=== PATIENT | female | born 1970 | race Caucasian/White ===

== ENCOUNTER 2017-02-10 14:42 | Observation (INO) | payer BC, MEDICAID ==
[2017-02-10] MEDS ORDERED: Aspirin 325 mg EC Tablets PO STA (14:53)
--- NOTE | 2017-02-10 14:57 | ED PDOC ---
Arrival/HPI - General Chief Complaint: Chest Pain Time Seen by Provider: 02/10/17 14:46 Historian: Patient - History of Present Illness Time/Duration: Other (2 weeks) Symptom Onset: Gradual Symptom Course: Unchanged Quality: Aching, Pressure Severity Level: Mild Activities at Onset: Rest Associated Symptoms (Text): 02/10/17 14:55 Patient complains of approximately 2 week history of intermittent chest pain described as an aching and pressure with radiation into her back along with shortness of breath and nausea. She especially has dyspnea on exertion. No dizziness. No diaphoresis. He is a hypertensive smoker. Positive family history. Past Medical History - Infectious Disease Hx of Infectious Diseases: None - Cardiac Hx Cardiac Disorders: Yes Hx Hypertension: Yes - Pulmonary Hx Respiratory Disorders: Yes Hx Asthma: Yes (exercise induced) - Neurological Hx Neurological Disorder: No - HEENT Hx HEENT Disorder: No - Renal Hx Renal Disorder: No - Endocrine/Metabolic Hx Endocrine Disorders: No - Hematological/Oncological Hx Blood Disorders: No - Integumentary Hx Dermatological Disorder: No - Musculoskeletal/Rheumatological Hx Musculoskeletal Disorders: Yes Other/Comment: joint disease, as per pt - Gastrointestinal Hx Gastrointestinal Disorders: No - Genitourinary/Gynecological Hx Genitourinary Disorders: No - Psychiatric Hx Psychophysiologic Disorder: No Hx Substance Use: No - Surgical History Hx Hysterectomy: Yes Hx Tonsillectomy: Yes Other/Comment: uterine prolapse repair - Anesthesia Hx Anesthesia: Yes Hx Anesthesia Reactions: No Family/Social History - Physician Review Nursing Documentation Reviewed: Yes Family/Social History: Unknown Family HX Smoking Status: Heavy Smoker > 10 Cigarettes Daily Hx Alcohol Use: Yes Frequency of alcohol use: Socially Hx Substance Use: No Allergies/Home Meds Allergies/Adverse Reactions: Allergies No Known Allergies Allergy (Unverified 02/10/17 14:53) Home Medications: Home Meds Medication Instructions Recorded Confirmed Estradiol [Estradiol] 0.5 mg PO DAILY 02/10/17 02/10/17 Gabapentin [Neurontin] 100 mg PO BID 02/10/17 02/10/17 Hydrochlorothiazide [Microzide] 12.5 mg PO DAILY 02/10/17 02/10/17 Sertraline [Zoloft] 12.5 mg PO DAILY 02/10/17 02/10/17 Sucralfate [Carafate Tab] 1 gm PO DAILY 02/10/17 02/10/17 traZODone [Desyrel] 25 mg PO DAILY 02/10/17 02/10/17 Review of Systems - Physician Review All systems were reviewed & negative as marked: Yes - Review of Systems Constitutional: Fatigue. absent: Fevers Respiratory: SOB. absent: Cough, Wheezing Cardiovascular: Chest Pain. absent: Palpitations, Syncope Gastrointestinal: Nausea. absent: Abdominal Pain, Constipation, Diarrhea, Vomiting Genitourinary Female: absent: Dysuria, Frequency, Hematuria Neurological: absent: Headache, Dizziness, Focal Weakness Physical Exam Vital Signs Temp Pulse Resp BP Pulse Ox 02/10/17 15:45 123/86 02/10/17 15:01 97.6 F 68 19 165/101 H 100 Temperature: Afebrile Blood Pressure: Hypertensive Pulse: Regular Respiratory Rate: Normal Appearance: Positive for: Well-Appearing, Non-Toxic, Comfortable Pain Distress: None Mental Status: Positive for: Alert and Oriented X 3 - Systems Exam Head: Present: Atraumatic, Normocephalic Pupils: Present: PERRL Extroacular Muscles: Present: EOMI Conjunctiva: Present: Normal Mouth: Present: Moist Mucous Membranes Pharnyx: No: ERYTHEMA, EXUDATE, TONSILS ENLARGED Neck: Present: Normal Range of Motion. No: MIDLINE TENDERNESS, Paraspinal Tenderness Respiratory/Chest: Present: Clear to Auscultation, Good Air Exchange, Decreased Breath Sounds. No: Respiratory Distress, Accessory Muscle Use Cardiovascular: Present: Regular Rate and Rhythm, Normal S1, S2. No: Murmurs Abdomen: Present: Normal Bowel Sounds. No: Tenderness, Distention, Peritoneal Signs, Rebound, Guarding Back: Present: Normal Inspection Upper Extremity: Present: Normal Inspection. No: Cyanosis, Edema Lower Extremity: Present: Normal Inspection. No: Edema Neurological: Present: GCS=15, CN II-XII Intact, Speech Normal, Motor Func Grossly Intact Skin: Present: Warm, Dry, Normal Color. No: Rashes Psychiatric: Present: Alert, Oriented x 3, Normal Insight, Normal Concentration Medical Decision Making ED Course and Treatment: 02/10/17 14:56 EKG shows normal sinus rhythm rate approximately [address] or T-wave changes 02/10/17 16:13 Pain and blood pressure have improved post nitroglycerin - Lab Interpretations Lab Results: 02/10/17 14:55 02/10/17 14:55 Lab Results 02/10/17 14:55: Sodium 138, Potassium 3.6, Chloride 100, Carbon Dioxide 27, Anion Gap 15, BUN 11, Creatinine 0.8, Est GFR ( Amer) > 60, Est GFR (Non- Af Amer) > 60, Random Glucose 100, Calcium 9.9, Total Bilirubin 0.5, AST 24, ALT 40, Alkaline Phosphatase 34 L, Lactate Dehydrogenase 465, Total Creatine Kinase 74, Troponin I < 0.01, NT-Pro-B Natriuret Pep 53.6, Total Protein 8.3, Albumin 4.3, Globulin 3.9, Albumin/Globulin Ratio 1.1 02/10/17 14:55: PT 10.3, INR 0.95, APTT 27.5, D-Dimer, Quantitative 0.20 02/10/17 14:55: WBC 8.5, RBC 4.85, Hgb 15.1, Hct 43.4, MCV 89.5, MCH 31.1, MCHC 34.8, RDW 13.6, Plt Count 309, MPV 9.4, Gran % 62.1, Lymph % (Auto) 30.4, Robeson % (Auto) 5.3, Eos % (Auto) 1.7, Baso % (Auto) 0.5, Gran # 5.27, Lymph # 2.6, Robeson # 0.5, Eos # 0.1, Baso # 0.04 - RAD Interpretation Radiology Orders: 02/10/17 14:53 CHEST PORTABLE [RAD] Stat Chest 1 view shows no infiltrate effusion or cardiomegaly Service Station Manager: ED Physician - Medication Orders Current Medication Orders: Discontinued Medications Acetaminophen (Tylenol 325mg Tab) Confirm Administered Dose 650 mg .ROUTE .STK- MED ONE Stop: 02/10/17 15:46 Last Admin: 02/10/17 15:48 Dose: Acetaminophen (Tylenol 325mg Tab) 650 mg PO STAT STA Stop: 02/10/17 15:48 Last Admin: 02/10/17 15:48 Dose: 650 mg Aspirin (Ecotrin) 325 mg PO STAT STA Stop: 02/10/17 14:54 Last Admin: 02/10/17 15:19 Dose: 325 mg Nitroglycerin (Nitrostat Sl Tab) 0.4 mg SL STAT STA Stop: 02/10/17 14:54 Last Admin: 02/10/17 15:19 Dose: 0.4 mg Disposition/Present on Arrival - Present on Arrival Any Indicators Present on Arrival: No History of DVT/PE: No History of Uncontrolled Diabetes: No Urinary Catheter: No History of Decub. Ulcer: No History Surgical Site Infection Following: None - Disposition Have Diagnosis and Disposition been Completed?: Yes Diagnosis: Chest pain, Hypertension Disposition: HOSPITALIZED Disposition Time: 16:13 Patient Plan: Observation, Telemetry Condition: GOOD Discharge Instructions (ExitCare): Chest Pain (ED)
[2017-02-10 15:15] LABS: ADD MANUAL DIFF? NO
[2017-02-10 15:19] LABS: BASO # 0.04 K/mm3 (0.0-2.0); BASO % 0.5 % (0.0-3.0); EOS # 0.1 (0.0-0.7); EOS % 1.7 % (1.5-5.0); GRAN # 5.27 (1.4-6.5); GRAN % 62.1 % (50.0-68.0); HEMATOCRIT 43.4 % (36.0-48.0); LYMPH # 2.6 (1.2-3.4); LYMPH % 30.4 % (22.0-35.0); MEAN CELL VOLUME 89.5 fL (80.0-105.0); MEAN CORPUSCULAR HEMOGLOBIN 31.1 pg (25.0-35.0); MEAN CORPUSCULAR HGB CONC 34.8 g/dl (31.0-37.0); MEAN PLATELET VOLUME 9.4 fl (7.0-11.0); MONO # 0.5 (0.1-0.6); MONO % 5.3 % (1.0-6.0); PLATELET COUNT 309 10^3/uL (120.0-450.0); RED CELL DISTRIBUTION WIDTH 13.6 % (11.5-14.5); WHITE BLOOD COUNT 8.5 10^3/ul (4.5-11.0)
[2017-02-10 15:28] LABS: ALB/GLOB RATIO 1.1 (1.1-1.8); ALKALINE PHOSPHATASE 34 U/L (38-133); ALT/SGPT 40 U/L (7-56); AST/SGOT 24 U/L (15-39); BILIRUBIN,TOTAL 0.5 mg/dL (0.2-1.3); BLOOD UREA NITROGEN 11 mg/dL (7-21); CALCIUM 9.9 mg/dL (8.4-10.5); CARBON DIOXIDE 27 mmol/L (21-33); CHLORIDE 100 mmol/L (98-107); GFR AFRICAN-AMERICAN > 60; GLUCOSE,RANDOM 100 mg/dL (70-110); POTASSIUM 3.6 mmol/L (3.6-5.0); SODIUM 138 mmol/L (132-148); TOTAL PROTEIN 8.3 g/dL (5.8-8.3)
--- NOTE | 2017-02-10 15:38 | RAD ---
HISTORY: cp COMPARISON: No prior. FINDINGS: LUNGS: No active pulmonary disease. PLEURA: No significant pleural effusion identified, no pneumothorax apparent. CARDIOVASCULAR: Normal. OSSEOUS STRUCTURES: No significant abnormalities. VISUALIZED UPPER ABDOMEN: Normal. OTHER FINDINGS: None. IMPRESSION: No active disease.
[2017-02-10 15:41] LABS: TROPONIN I < 0.01 ng/mL
[2017-02-10 15:45] LABS: D DIMER 0.2 mg/L FEU (0-0.50); INR 0.95 (0.93-1.08); PARTIAL THROMBOPLASTIN TIME 27.5 Seconds (23.7-30.8)
--- NOTE | 2017-02-10 19:35 | HP ---
HISTORY OF PRESENT ILLNESS: I was called down to the Emergency Room to evaluate the patient. She is having chest pain relieved by nitroglycerin. A 47 -year-old white female with a 2-week history of intermittent chest pain, aching , pressure radiating to her back, along with shortness of breath and nausea. She has dyspnea on exertion. She is hypertensive and she is a smoker. There is a family history of heart disease. PAST MEDICAL HISTORY: She has asthma, exercise induced. She has arthritis. PAST SURGICAL HISTORY: Hysterectomy, tonsillectomy, uterine prolapse repair. FAMILY HISTORY: Hypertension in the family. SOCIAL HISTORY: She is a smoker. She uses alcohol socially. No substance abuse. ALLERGIES: No known drug allergies. MEDICATIONS: She takes estradiol, Neurontin, Microzide, Zoloft, Carafate, and Desyrel. REVIEW OF SYSTEMS: No acute vision changes or hearing changes. No sore throat. No neck pain. There is shortness of breath. There is chest pain. There is pressure and tightness. No palpitations. No abdominal pain, constipation, diarrhea or vomiting, but she has some nauseousness with the pain. No problems urinating. No headaches, dizziness or focal weakness. Skin is intact. PHYSICAL EXAMINATION: VITAL SIGNS: She has a 97.6 temp, 68 pulse, 19 respiratory rate, 165/101 blood pressure, 100% O2 sat. HEENT: Head is atraumatic, normocephalic. Extraocular muscles are intact. Pupils equal, react to light and accommodation. Throat is moist. NECK: Supple. Thyroid midline. No palpable lymphadenopathy appreciated. HEART: Regular rate. Normal S1, S2. LUNGS: Decreased breath sounds but clear to auscultation. No wheezes or rhonchi appreciated. ABDOMEN: Soft, nontender, positive bowel sounds. Morbidly obese. No guarding , no rebound. EXTREMITIES: No edema. GCS is 15. NEUROLOGIC: Cranial nerves II-XII grossly intact. Speech is normal. Motor function grossly intact. Alert and oriented x 3. SKIN: Warm and dry. NEUROLOGIC: EKG was normal sinus rhythm at [address]-T wave changes. Chest x- ray showed no acute disease. LABORATORY DATA: She has a 138 sodium, potassium 3.6, BUN 11, creatinine 0.8, GFR is greater than 60, sugar is 100, calcium 9.9, total bili is 0.5, AST is 24 , ALT is 40, alkaline phosphatase 34, lactate dehydrogenase 465. First troponin is less than 0.01. BNP is 53.6, total protein is 8.3. INR is 0.95. D -dimer was 0.2. White count is 8.5, hemoglobin 15.1, hematocrit 43.4, platelets of 309. ASSESSMENT AND PLAN: She will have 2 more troponins in the next q. 8 hours. She will be put back on her medication. I will put her on has nitroglycerin sublingual p.r.n. just in case. She had an aspirin. She will have a consult with Dr. Parson, the secondary school teacher. She will be put on observation status due to her family history of bad heart disease, her having chest pain and pressure relieved by nitroglycerin and dyspnea on exertion. Hopefully, she will do well. The patient is in observation for chest pain. Elkin Montalvo DO cc: [id number] TT: 02/10/2017 19:34:28 marylin RAMIREZ
[2017-02-10 22:44] VITALS: BMI 38.4
[2017-02-11 06:25] VITALS: TEMP 97.7
[2017-02-11 07:23] LABS: HEMATOCRIT 42.2 % (36.0-48.0); MEAN CORPUSCULAR HEMOGLOBIN 30.3 pg (25.0-35.0); MEAN CORPUSCULAR HGB CONC 33.6 g/dl (31.0-37.0); MEAN PLATELET VOLUME 9.7 fl (7.0-11.0); RED CELL DISTRIBUTION WIDTH 13.9 % (11.5-14.5); WHITE BLOOD COUNT 5.9 10^3/ul (4.5-11.0)
[2017-02-11 07:38] LABS: ALB/GLOB RATIO 1.1 (1.1-1.8); ALKALINE PHOSPHATASE 31 U/L (38-133); ALT/SGPT 34 U/L (7-56); AST/SGOT 24 U/L (15-39); BILIRUBIN,TOTAL 0.5 mg/dL (0.2-1.3); BLOOD UREA NITROGEN 19 mg/dL (7-21); CALCIUM 9.6 mg/dL (8.4-10.5); CARBON DIOXIDE 27 mmol/L (21-33); CHLORIDE 103 mmol/L (98-107); GFR AFRICAN-AMERICAN > 60; GLUCOSE,RANDOM 116 mg/dL (70-110); POTASSIUM 3.9 mmol/L (3.6-5.0); SODIUM 139 mmol/L (132-148); TOTAL PROTEIN 7.3 g/dL (5.8-8.3)
[2017-02-11 07:56] LABS: TROPONIN I < 0.01 ng/mL
[2017-02-11] MEDS ORDERED: ESTRADIOL 0.5 MG PO SCH (10:00)
[2017-02-11 10:29] VITALS: BP 125/82; PULSE 60; RESP 18; O2SAT 97
--- NOTE | 2017-02-11 12:19 | DS ---
I saw her resting comfortably in bed this morning. She slept well. She is in good spirits. No ches t pain. She is on Ambien, Carafate, Desyrel, Ecotrin, estradiol, Microzide, Neurontin, Nitrostat, ju st in case, Tylenol and Zoloft. Those are the medicines she is going to go home on minus the Nitrost at. PHYSICAL EXAMINATION: VITAL SIGNS: 97.7 temp, 62 pulse, 112/58 blood pressure, 19 respiratory rate, 96% O2 sat on room air . HEENT: Head is atraumatic, normocephalic. Throat is moist. NECK: Supple. HEART: Regular rate. LUNGS: Decreased breath sounds but clear to auscultation. ABDOMEN: Soft, obese, nontender, positive bowel sounds. EXTREMITIES: No edema. LABORATORY DATA: She had a 139 sodium, potassium 3.9, BUN 19, creatinine 0.8, GFR is greater than 60 , sugar is 116, calcium 9.6, total bili is 0.5, AST is 24, ALT is 34, alk phosphatase 31. All 3 trop onins are less than 0.01 with a total protein 7.3. Coagulation is 0.95. D-dimer was 0.2. White coun t 5.9, 14.2 hemoglobin, 42.2 hematocrit with 295 platelets. ASSESSMENT AND PLAN: I am waiting for Dr. Parson, the [employer], to give his opinion. I am hoping we can discharge her this morning. She wants to go home. Maybe we could do an outpatient stress lashon t depending on what cardio says. I put the discharge order in. She will be followed up in the [facility] in about a week. She will continue with the same medications. I told her at this time it is not he r heart, the tests were good. She will also have to quit smoking, lose some weight, increase her wal mark. The patient came in for chest pain and also shortness of breath. She was an observation. Elkin Montalvo DO cc: [id number] TT: 02/11/2017 12:18:14 rn
--- NOTE | 2017-02-11 13:07 | CARD ---
APPROVED REPORT EKG Measurement Heart [id number] <Conclusion> Normal sinus rhythm Normal ECG
--- NOTE | 2017-02-11 13:52 | CON ---
DATE: 02/11/2017 I was called to see the patient on consult for chest pain; however, she was discharged before I could see her. In reviewing her chart, her EKG was normal. Troponins were negative. I have called cardiology department to call the patient back up to arrange for an outpatient stress t est for cardiac workup. Jose Parson MD cc: [id number] TT: 02/11/2017 13:51:42 Confirmation # [id number] Dictation # [id number] rn
== END 2017-02-11 11:09 | disposition home or self-care (01) ==
LOC: ED 14:42 → ERH 16:13 → 2RNO 21:33
PROVIDERS: ADMIT Family Medicine; ATTEND Family Medicine
DX: J45.909 Unspecified asthma, uncomplicated (principal); R07.9 Chest pain, unspecified; R06.02 Shortness of breath; I10 Essential (primary) hypertension; F17.210 Nicotine dependence, cigarettes, uncomplicated; Z90.710 Acquired absence of both cervix and uterus; Z82.49 Family history of ischemic heart disease and other diseases of the circulatory system
CPT/HCPCS: 36415; 71010; 80053; 82550; 83615; 83880; 84484; 85025; 85027; 85378; 85610; 85730; 93005; 99285; G0378

== ENCOUNTER 2017-09-16 10:14 | Observation (INO) | payer BC ==
[2017-09-16 11:21] LABS: BASO # 0.04 K/mm3 (0.0-2.0); BASO % 0.5 % (0.0-3.0); EOS # 0.2 (0.0-0.7); EOS % 2.7 % (1.5-5.0); GRAN % 61.5 % (50.0-68.0); HEMATOCRIT 43.7 % (36.0-48.0); LYMPH # 2.4 (1.2-3.4); LYMPH % 29.9 % (22.0-35.0); MEAN CORPUSCULAR HGB CONC 34.1 g/dl (31.0-37.0); MEAN PLATELET VOLUME 9.6 fl (7.0-11.0); MONO # 0.4 (0.1-0.6); MONO % 5.4 % (1.0-6.0); RED CELL DISTRIBUTION WIDTH 13.2 % (11.5-14.5); WHITE BLOOD COUNT 8.1 10^3/ul (4.5-11.0)
[2017-09-16 11:39] LABS: PARTIAL THROMBOPLASTIN TIME 27.5 Seconds (25.1-36.5)
[2017-09-16 11:44] LABS: INR 0.99 (0.93-1.08)
[2017-09-16 12:17] LABS: URINE BILIRUBIN NEGATIVE (NEGATIVE); URINE BLOOD TRACE-INTACT (NEGATIVE); URINE GLUCOSE (UA) NEGATIVE (NEGATIVE); URINE KETONE NEGATIVE (NEGATIVE); URINE LEUKOCYTE ESTERASE NEGATIVE Leu/uL (NEGATIVE); URINE PROTEIN NEGATIVE mg/dL (<30 mg/dL); URINE UROBILINOGEN 0.2 E.U./dL (<1 E.U./dL)
[2017-09-16 12:21] LABS: URINE APPEARANCE CLEAR (CLEAR); URINE COLOR YELLOW (YELLOW)
[2017-09-16 12:28] LABS: URINE WBC 0 - 2 /hpf (0-6)
[2017-09-16 12:29] LABS: URINE AMORPHOUS SEDIMENT FEW; URINE BACTERIA MOD (NEG)
[2017-09-16 13:27] LABS: ALB/GLOB RATIO 1.2 (1.1-1.8); ALKALINE PHOSPHATASE 34 U/L (38-126); ALT/SGPT 46 U/L (7-56); AST/SGOT 31 U/L (14-36); BILIRUBIN,TOTAL 0.5 mg/dL (0.2-1.3); BLOOD UREA NITROGEN 15 mg/dL (7-21); CALCIUM 9.9 mg/dL (8.4-10.5); CARBON DIOXIDE 26 mmol/L (21-33); CHLORIDE 105 mmol/L (98-107); GFR AFRICAN-AMERICAN > 60; GLUCOSE,RANDOM 99 mg/dL (70-110); PHOSPHOROUS 4.3 mg/dL (2.5-4.5); SODIUM 139 mmol/L (132-148); TOTAL PROTEIN 7.5 g/dL (5.8-8.3)
[2017-09-16] MEDS ORDERED: Iohexol 350 MG/100 ML VIAL ONE (13:31)
[2017-09-16 13:38] LABS: TROPONIN I < 0.01 ng/mL
[2017-09-16 13:44] LABS: FREE T4 0.9 ng/dL (0.78-2.19)
--- NOTE | 2017-09-16 13:46 | CT ---
PROCEDURE: CT HEAD WITHOUT CONTRAST. HISTORY: right sided numbness/weakness x 2 days COMPARISON: None available. TECHNIQUE: Axial computed tomography images were obtained through the head/brain without intravenous contrast. Radiation dose: Total exam DLP = 692 mGy-cm. This CT exam was performed using one or more of the following dose reduction techniques: Automated exposure control, adjustment of the mA and/or kV according to patient size, and/or use of iterative reconstruction technique. FINDINGS: HEMORRHAGE: No intracranial hemorrhage. BRAIN: No mass effect or edema. No atrophy or chronic microvascular ischemic changes. VENTRICLES: Unremarkable. No hydrocephalus. CALVARIUM: Unremarkable. PARANASAL SINUSES: Unremarkable as visualized. No significant inflammatory changes. MASTOID AIR CELLS: Unremarkable as visualized. No inflammatory changes. OTHER FINDINGS: None. IMPRESSION: Normal CT of the Head.
[2017-09-16 13:57] LABS: T3 1.54 ng/mL (0.97-1.69); THYROID STIMULATING HORMONE 1.36 mIU/mL (0.46-4.68)
[2017-09-16] MEDS ORDERED: Dextrose 5%/0.45% NS 1,000 ML IV SCH (14:15)
--- NOTE | 2017-09-16 14:46 | ED PDOC ---
Arrival/HPI - General Chief Complaint: Weakness/Neurological Deficit Time Seen by Provider: 09/16/17 10:46 Historian: Patient - History of Present Illness Narrative History of Present Illness (Text): 09/16/17 11:07 A 47 year old female, whose past medical history includes substance abuse ( marijuana), presents to the emergency department complaining of slight slurring of speech. Patient notes experiencing hesitance of speech and gait disturbance since 2 days ago. Patient reports she was walking to the doctor's office when this occurred. Also, she mentions having full mis-feeling of right side of face. Patient denies of any visual changes, any pain, headache, fever, neck stiffness, or any other complaints. No recent travel. No PMD Time/Duration: < week (2 days) Past Medical History - Provider Review Nursing Documentation Reviewed: Yes - Infectious Disease Hx of Infectious Diseases: None - Reproductive Menopause: No - Cardiac Hx Angina: Yes (a year or so/ intermittent) Hx Hypertension: Yes - Pulmonary Hx Asthma: Yes - Neurological Hx Neurological Disorder: No - HEENT Hx HEENT Disorder: No - Renal Hx Renal Disorder: No - Endocrine/Metabolic Hx Endocrine Disorders: No - Hematological/Oncological Hx Blood Disorders: No - Integumentary Hx Dermatological Disorder: No - Musculoskeletal/Rheumatological Hx Falls: No Hx Herniated Disk: Yes - Gastrointestinal Hx Gastrointestinal Disorders: No - Genitourinary/Gynecological Hx Genitourinary Disorders: No - Psychiatric Hx Depression: Yes Hx Post Traumatic Stress Disorder: Yes Hx Substance Use: No - Surgical History Hx Hysterectomy: Yes - Anesthesia Hx Anesthesia: Yes Hx Anesthesia Reactions: No Hx Malignant Hyperthermia: No Family/Social History - Physician Review Nursing Documentation Reviewed: Yes Family/Social History: No Known Family HX Smoking Status: Heavy Smoker > 10 Cigarettes Daily Hx Alcohol Use: Yes Hx Substance Use: No Allergies/Home Meds Allergies/Adverse Reactions: Allergies No Known Allergies Allergy (Verified 09/16/17 10:35) Home Medications: Home Meds Medication Instructions Recorded Confirmed Estradiol [Estradiol] 0.5 mg PO DAILY 02/10/17 09/16/17 Gabapentin [Neurontin] 100 mg PO BID 02/10/17 09/16/17 Hydrochlorothiazide [Microzide] 12.5 mg PO DAILY 02/10/17 09/16/17 Sertraline [Zoloft] 12.5 mg PO DAILY 02/10/17 09/16/17 Sucralfate [Carafate Tab] 1 gm PO DAILY 02/10/17 09/16/17 traZODone [Desyrel] 25 mg PO DAILY 02/10/17 09/16/17 Review of Systems - Physician Review All systems were reviewed & negative as marked: Yes - Review of Systems Constitutional: absent: Fevers Eyes: absent: Vision Changes ENT: Voice Changes (slight slurring of speech; hesitance in speech) Cardiovascular: absent: Chest Pain Gastrointestinal: absent: Abdominal Pain Musculoskeletal: absent: Other (no neck stiffness) Neurological: Gait Changes (gait disturbance). absent: Headache Physical Exam Vital Signs Reviewed: Yes Vital Signs Temp Pulse Resp BP Pulse Ox 09/16/17 16:39 98.1 F 68 18 121/68 09/16/17 16:36 56 L 09/16/17 15:30 68 18 121/68 96 09/16/17 13:00 66 18 115/71 98 09/16/17 12:03 64 18 117/75 98 09/16/17 10:45 98.1 F 66 17 118/90 98 09/16/17 10:24 98.3 F 62 18 132/85 98 Temperature: Afebrile Blood Pressure: Normal Pulse: Regular Respiratory Rate: Normal Appearance: Positive for: Well-Appearing Pain Distress: None Mental Status: Positive for: Alert and Oriented X 3 - Systems Exam Head: Present: Other (slight right facial droop of face) Pupils: Present: PERRL Extroacular Muscles: Present: EOMI Conjunctiva: Present: Normal Mouth: Present: Moist Mucous Membranes Neck: Present: Normal Range of Motion Respiratory/Chest: Present: Clear to Auscultation, Good Air Exchange. No: Respiratory Distress, Accessory Muscle Use Cardiovascular: Present: Regular Rate and Rhythm, Normal S1, S2. No: Murmurs Abdomen: Present: Normal Bowel Sounds. No: Tenderness, Distention, Peritoneal Signs Back: Present: Normal Inspection Upper Extremity: Present: Normal Inspection. No: Cyanosis, Edema Lower Extremity: Present: Normal Inspection. No: Edema Neurological: Present: Other (slight weakness to both upper and lower extremities) Skin: Present: Warm, Dry, Normal Color. No: Rashes Psychiatric: Present: Alert, Oriented x 3, Normal Insight, Normal Concentration Medical Decision Making ED Course and Treatment: 09/16/17 11:11 Impression: 47 year old female with slight slurring of speech and gait disturbance. Physical exam shows slight right facial droop; neuro: has slight weakness to both upper and lower extremities. Plan: -- EKG -- Head CT -- Angio Head & Neck CT -- Labs -- Urine Culture -- Urinalysis -- Urine Test -- Reassess and disposition Prior Visits: Notes and results from previous visits were reviewed. Patient was last seen in the emergency department on 02/10/2017 for intermittent chest pain. Patient was admitted under telemetry observation. Progress Notes: EKG: Ordered, reviewed, and independently interpreted the EKG. Rate : 54 BPM Rhythm : Sinus bradycardia Interpretation : No ST-segment elevations or depressions, no T-wave inversions, normal intervals. Comparison : No previous EKG for comparison. 09/16/2017 13:[address] IMPRESSION: Normal CT of the Head. Dictator: Kailash Farah MD 09/16/2017 14:44 Head/Neck CTA IMPRESSION: Normal CT Angiography of the neck and Brain. Dictator: Kailash Farah MD - Lab Interpretations Lab Results: 09/16/17 11:10 09/16/17 11:10 Lab Results 09/16/17 11:50: Urine Color Yellow, Urine Appearance Clear, Urine pH 6.0, Ur Specific [place] >= 1.030, Urine Protein Negative, Urine Glucose (UA) Negative, Urine Ketones Negative, Urine Blood Trace-intact H, Urine Nitrate Negative, Urine Bilirubin Negative, Urine Urobilinogen 0.2, Ur Leukocyte Esterase Negative , Urine RBC 2 - 5, Urine WBC 0 - 2, Ur Epithelial Cells 6 - 8, Amorphous Sediment Few, Urine Bacteria Mod, Urine Other Uyeast 09/16/17 11:50: Urine Opiates Screen Negative, Urine Methadone Screen Negative, Ur Barbiturates Screen Negative, Ur Phencyclidine Scrn Negative, Ur Amphetamines Screen Negative, U Benzodiazepines Scrn Negative, U Oth Cocaine Metabols Negative, U Cannabinoids Screen Negative 09/16/17 11:10: D-Dimer, Quantitative 271 H 09/16/17 11:10: Free T4 0.90, Total T3 1.54, TSH 3rd Generation 1.36 09/16/17 11:10: Sodium 139, Potassium 4.0, Chloride 105, Carbon Dioxide 26, Anion Gap 12, BUN 15, Creatinine 0.8, Est GFR ( Amer) > 60, Est GFR (Non- Af Amer) > 60, Random Glucose 99, Calcium 9.9, Phosphorus 4.3, Magnesium 2.0, Total Bilirubin 0.5, AST 31, ALT 46, Alkaline Phosphatase 34 L, Troponin I < 0.01, Total Protein 7.5, Albumin 4.1, Globulin 3.4, Albumin/Globulin Ratio 1.2 09/16/17 11:10: PT 10.9, INR 0.99, APTT 27.5 09/16/17 11:10: WBC 8.1 D, RBC 4.80, Hgb 14.9, Hct 43.7, MCV 91.0, MCH 31.0, MCHC 34.1, RDW 13.2, Plt Count 252, MPV 9.6, Gran % 61.5, Lymph % (Auto) 29.9, [place] % (Auto) 5.4, Eos % (Auto) 2.7, Baso % (Auto) 0.5, Gran # 5.00, Lymph # 2.4 , [place] # 0.4, Eos # 0.2, Baso # 0.04 I have reviewed the lab results: Yes - RAD Interpretation Radiology Orders: 09/16/17 11:12 HEAD W/O CONTRAST [CT] Stat 09/16/17 11:13 ANGIO [CTA HEAD & NECK BUNDLE] [CT] Stat 09/16/17 12:03 CAROTID & VERTEBRAL DUPLEX [US] Stat DUPLEX LOWER EXTRM VEIN BILAT [US] Stat - Medication Orders Current Medication Orders: Aspirin (Ecotrin) 81 mg PO 0800 YING Atorvastatin Calcium (Lipitor) 40 mg PO DIN YING Enoxaparin Sodium (Lovenox) 40 mg SC DAILY [facility] PRN Reason: Protocol Last Admin: 09/16/17 15:12 Dose: 40 mg MAR aPTT Document 09/16/17 15:12 EQ (Rec: 09/16/17 15:13 EQ [facility] [id number]) aPTT aPTT (secs) 27.5 Subcutaneous Administrations Document 09/16/17 15:12 EQ (Rec: 09/16/17 15:13 EQ [facility] [id number]) Injection Site MAR Injection Site Left Abdomen Charges for Administration # of Subcutaneous Administrations 1 Gabapentin (Neurontin) 100 mg PO BID [facility] PRN Reason: Protocol Sodium Chloride (Sodium Chloride 0.9%) 1,000 mls @ 100 mls/hr IV .Q10H YING Stop: 09/18/17 19:44 Last Admin: 09/16/17 17:46 Dose: 100 mls/hr eMAR Start Stop Document 09/16/17 17:46 MF (Rec: 09/16/17 17:46 MF [id number]) Intravenous Solution Start Date 09/16/17 Start Time 17:46 Pantoprazole Sodium (Protonix Inj) 40 mg IVP DAILY YING Sertraline HCl (Zoloft) 12.5 mg PO DAILY YING Sucralfate (Carafate Tab) 1 gm PO DAILY YING Trazodone HCl (Desyrel) 25 mg PO DAILY YING Discontinued Medications Dextrose/Sodium Chloride (Dextrose 5%/0.45% Ns 1000 Ml) 1,000 mls @ 100 mls/hr IV .Q10H YING Last Admin: 09/16/17 15:13 Dose: 100 mls/hr eMAR Start Stop Document 09/16/17 15:13 EQ (Rec: 09/16/17 15:13 EQ [facility] [id number]) Intravenous Solution Start Date 09/16/17 Start Time 15:13 Pneumococcal Polyvalent Vaccine (Pneumovax 23 Vaccine) 0.5 ml IM .ONCE ONE Stop: 09/16/17 17:04 NIHSS Scale ([place]) Time Performed: 08:20 - How Severe is the Stoke Baseline Level of Consciousness: 0=Alert LOC to Questions: 0=Both comments correct LOC to commands: 0=Obeys both correctly Best Gaze: 0=Normal Visual: 0=No visual loss Facial: 1=Minor asymmetry Motor Arm - Left: 0=No drift Motor Arm - Right: 1=Drift noted before 10 sec Motor Leg - Left: 0=No drift Motor Leg - Right: 1=Drift before 5 sec Limb Ataxia: 0=Absent Sensory: 0=Normal Best Language: 0=No aphasia Dysarthia: 1=Mild to moderate slurring Extinction & Inattention (Neglect): 0=Normal, no object Score: 4 Risk Level: Minor Stroke Risk rTPA Inclusion/Exclusion - Refusal of Treatment Patient Refused Treatment: No - Inclusion Criteria for Altepase Patient is 18 years or Older: Yes The Clinical Diagnosis of Ischemic Stroke That is Causing a Potentially Disabling Neurological Deficit: No Time of Onset is Well Established to be Less Than 270 Minute Before Treatment Would Begin: No Risk/Benefit Discussed With Patient/Family Member Present: No - Scribe Statement The provider has reviewed the documentation as recorded by the Miguel Underwood Provider Scribe Attestation: All medical record entries made by the Scribe were at my direction and personally dictated by me. I have reviewed the chart and agree that the record accurately reflects my personal performance of the history, physical exam, medical decision making, and the department course for this patient. I have also personally directed, reviewed, and agree with the discharge instructions and disposition. Disposition/Present on Arrival - Present on Arrival Any Indicators Present on Arrival: No History of DVT/PE: No History of Uncontrolled Diabetes: No Urinary Catheter: No History of Decub. Ulcer: No History Surgical Site Infection Following: None - Disposition Have Diagnosis and Disposition been Completed?: Yes Diagnosis: TIA (transient ischemic attack) Disposition: HOSPITALIZED Disposition Time: 12:00 Condition: FAIR
--- NOTE | 2017-09-16 14:46 | CT ---
PROCEDURE: CT Angiography of the neck with contrast HISTORY: right sided weakness/numbness x 2 days COMPARISON: None available. TECHNIQUE: Contiguous axial images of the neck were obtained from the level of the skull-base to the superior mediastinum in the arteriographic phase of enhancement. Coronal and sagittal reformats or also generated. IV contrast dose: 100 cc of Omni 350 Radiation Dose - DLP: 584 mGy-cm This CT exam was performed using one or more of the following dose reduction techniques: Automated exposure control, adjustment of the mA and/or kV according to patient size, and/or use of iterative reconstruction technique. FINDINGS: RIGHT CAROTID ARTERIES: Common Carotid Artery: Normal. Carotid Bifurcation: Normal. Internal Carotid Artery:Normal. External Carotid Artery (proximal branches): Normal. LEFT CAROTID ARTERIES: Common Carotid Artery: Normal. Carotid Bifurcation: Normal. Internal Carotid Artery:Normal. External Carotid Artery (proximal branches): Normal. VERTEBRAL ARTERIES: Right Vertebral Artery: Dominant Left Vertebral Artery: Normal. OTHER FINDINGS: None. IMPRESSION: Normal CT Angiography of the neck. PROCEDURE: CT Angiography of the Brain. HISTORY: right sided weakness/numbness x 2 days COMPARISON: None available. TECHNIQUE: CT angiography of the intracranial arteries was performed. Coronal and sagittal maximum intensity projection reformated images were generated. This CT exam was performed using one or more of the following dose reduction techniques: Automated exposure control, adjustment of the mA and/or kV according to patient size, and/or use of iterative reconstruction technique. FINDINGS: INTERNAL CEREBRAL ARTERIES: Unremarkable. The skull base, petrous, cavernous and supraclinoid segments are bilaterally widely patent. ANTERIOR CEREBRAL ARTERIES: Unremarkable. A1 and A2 segments are widely patent. Smaller distal branches unremarkable, as visualized. MIDDLE CEREBRAL ARTERIES: Unremarkable. M1 and M2 segments are widely patent. Perisylvian branches grossly symmetric. POSTERIOR CIRCULATION: Basilar Artery: Unremarkable. Distal Vertebral Arteries: Unremarkable. Posterior Cerebral Arteries: Unremarkable. Posterior Inferior Cerebellar Arteries: Unremarkable. ANEURYSM/ VASCULAR MALFORMATIONS: None. OTHER FINDINGS: None. IMPRESSION: Unremarkable CT Angiography of the Brain.
--- NOTE | 2017-09-16 15:11 | CP.PCM.HP ---
History of Present Illness - History of Present Illness History of Present Illness: PGY-[address] Zamudio Admit: slurr of speech A 47 year old female, whose PMHx includes substance abuse (marijuana), PTSD on Sertraline, Hx Bojorquez's palsy, HTN, Family Hx of premature cardiac . c/o slurring of speech x 2days. Slowing and slurring of speech started with loss of R facial expression 2 days ago and became noticible by yesterday. It was associated with numbness and pressure sensation of R face, face drooping, loss of balance, and gait disturbance. ROS - (+) recent travel from [place] 2 weeks ago Denies choking, fever and chills, headache, visial changes, CP, SOB, N/V/C/D , dysuria PMH Bojorquez's palsy HTN Angina x 1 year, intermittent Asthma substance abuse (marijuana) Herniated Disk PTSD and depression Stress test normal 4 years ago OBGYN , no abnormal pap smear or mammogram but last ones were > 5 years ago PSH Hysterectomy Psych Self admited to psych hosp x 3 FH Heart disease Premature cardiac , maternal uncle, 1st Heart attach 35-40 y/o. around 57 due to heart attack father 60s, of VT and CHF SH Live in [facility] Heavy Smoker > 10 Cigarettes Daily ETOH Marijuana All: NKDA Home Med: Estradiol 0.5 mg PO DAILY Gabapentin 100 mg PO BID Hydrochlorothiazide 12.5 mg PO DAILY Sertraline 12.5 mg PO DAILY Sucralfate 1 gm PO DAILY traZODone 25 mg PO DAILY PMD: Dr Keyur [place], [facility] Psych: Dr. Chew Present on Admission - Present on Admission Any Indicators Present on Admission: No Review of Systems - Review of Systems All systems: reviewed and no additional remarkable complaints except - EENT Additional comments: slurr speech, numb R face - Neurological Neurological: Abnormal Speech, Dizziness, Lack of Coordination Additional comments: slow reaction Past Patient History - Infectious Disease Hx of Infectious Diseases: None - Past Social History Smoking Status: Heavy Smoker > 10 Cigarettes Daily - CARDIAC Hx Angina: Yes (a year or so/ intermittent) Hx Hypertension: Yes - PULMONARY Hx Asthma: Yes - NEUROLOGICAL Hx Neurological Disorder: No - HEENT Hx HEENT Problems: No - RENAL Hx Chronic Kidney Disease: No - ENDOCRINE/METABOLIC Hx Endocrine Disorders: No - HEMATOLOGICAL/ONCOLOGICAL Hx Blood Disorders: No - INTEGUMENTARY Hx Dermatological Problems: No - MUSCULOSKELETAL/RHEUMATOLOGICAL Hx Falls: No Hx Herniated Disk: Yes - GASTROINTESTINAL Hx Gastrointestinal Disorders: No - GENITOURINARY/GYNECOLOGICAL Hx Genitourinary Disorders: No - PSYCHIATRIC Hx Depression: Yes Hx Post Traumatic Stress Disorder: Yes Hx Substance Use: No - SURGICAL HISTORY Hx Hysterectomy: Yes - ANESTHESIA Hx Anesthesia: Yes Hx Anesthesia Reactions: No Hx Malignant Hyperthermia: No Meds Home Medications: Home Medication List Medication Instructions Recorded Confirmed Type Aspirin [Ecotrin] 81 mg PO 0800 #30 tabec 09/17/17 Rx Atorvastatin [Lipitor] 40 mg PO DIN #30 tab 09/17/17 Rx [id number] Ethyl Esters 1 GM 2 gm PO BID #120 sgl 09/17/17 Rx [Lovaza] Pantoprazole [Protonix Inj] 40 mg PO DAILY #30 tab 09/17/17 Rx Allergies/Adverse Reactions: Allergies Allergy/AdvReac Type Severity Reaction Status Date / Time No Known Allergies Allergy Verified 09/16/17 10:35 Physical Exam - Constitutional Appears: No Acute Distress - Head Exam Head Exam: ATRAUMATIC, NORMAL INSPECTION, NORMOCEPHALIC - Eye Exam Eye Exam: EOMI, Normal appearance, PERRL. absent: Scleral icterus Pupil Exam: NORMAL ACCOMODATION - ENT Exam ENT Exam: Mucous Membranes Moist - Neck Exam Additional comments: supple. no nuchal rigitdty - Respiratory Exam Respiratory Exam: Clear to Auscultation Bilateral. absent: Rales, Rhonchi, Wheezes - Cardiovascular Exam Cardiovascular Exam: REGULAR RHYTHM, +S1, +S2 - GI/Abdominal Exam GI & Abdominal Exam: Normal Bowel Sounds, Soft. absent: Distended, Firm, Guarding - Extremities Exam Extremities exam: Negative for: calf tenderness - Back Exam Back exam: absent: CVA tenderness (L), CVA tenderness (R) - Neurological Exam Neurological exam: Alert, Motor Sensory Deficit, Oriented x3, Reflexes Normal Additional comments: CN 2 to 4 intact decrease sensation on V1. v2, v3 R side Facial Droop on L side and decrease forehead strenth L no tongue / uvula deviation rapid alteranating movement intact motor 5/5 all extremities - Psychiatric Exam Psychiatric exam: Flat Affect - Skin Skin Exam: Dry, Warm Results - Vital Signs Recent Vital Signs: Last Vital Signs Temp 98.1 F 09/16/17 10:45 Pulse 66 09/16/17 13:00 Resp 18 09/16/17 13:00 BP 115/71 09/16/17 13:00 Pulse Ox 98 09/16/17 13:00 - Labs Result Diagrams: 09/17/17 06:45 09/17/17 06:45 Labs: Laboratory Results - last 24 hr 09/16/17 09/16/17 09/16/17 11:10 11:10 11:10 WBC 8.1 D RBC 4.80 Hgb 14.9 Hct 43.7 MCV 91.0 MCH 31.0 MCHC 34.1 RDW 13.2 Plt Count 252 MPV 9.6 Gran % 61.5 Lymph % (Auto) 29.9 Wol[place] % (Auto) 5.4 Eos % (Auto) 2.7 Baso % (Auto) 0.5 Gran # 5.00 Lymph # 2.4 Wolfe # 0.4 Eos # 0.2 Baso # 0.04 PT 10.9 INR 0.99 APTT 27.5 D-Dimer, Quantitative Sodium 139 Potassium 4.0 Chloride 105 Carbon Dioxide 26 Anion Gap 12 BUN 15 Creatinine 0.8 Est GFR ( Amer) > 60 Est GFR (Non-Af Amer) > 60 Random Glucose 99 Calcium 9.9 Phosphorus 4.3 Magnesium 2.0 Total Bilirubin 0.5 AST 31 ALT 46 Alkaline Phosphatase 34 L Troponin I < 0.01 Total Protein 7.5 Albumin 4.1 Globulin 3.4 Albumin/Globulin Ratio 1.2 Free T4 Total T3 TSH 3rd Generation Urine Color Urine Appearance Urine pH Ur Specific [place] Urine Protein Urine Glucose (UA) Urine Ketones Urine Blood Urine Nitrate Urine Bilirubin Urine Urobilinogen Ur Leukocyte Esterase Urine RBC Urine WBC Ur Epithelial Cells Amorphous Sediment Urine Bacteria Urine Other Urine Opiates Screen Urine Methadone Screen Ur Barbiturates Screen Ur Phencyclidine Scrn Ur Amphetamines Screen U Benzodiazepines Scrn U Oth Cocaine Metabols U Cannabinoids Screen 09/16/17 09/16/17 09/16/17 11:10 11:10 11:50 WBC RBC Hgb Hct MCV MCH MCHC RDW Plt Count MPV Gran % Lymph % (Auto) [place] % (Auto) Eos % (Auto) Baso % (Auto) Gran # Lymph # [place] # Eos # Baso # PT INR APTT D-Dimer, Quantitative 271 H Sodium Potassium Chloride Carbon Dioxide Anion Gap BUN Creatinine Est GFR ( Amer) Est GFR (Non-Af Amer) Random Glucose Calcium Phosphorus Magnesium Total Bilirubin AST ALT Alkaline Phosphatase Troponin I Total Protein Albumin Globulin Albumin/Globulin Ratio Free T4 0.90 Total T3 1.54 TSH 3rd Generation 1.36 Urine Color Urine Appearance Urine pH Ur Specific [place] Urine Protein Urine Glucose (UA) Urine Ketones Urine Blood Urine Nitrate Urine Bilirubin Urine Urobilinogen Ur Leukocyte Esterase Urine RBC Urine WBC Ur Epithelial Cells Amorphous Sediment Urine Bacteria Urine Other Urine Opiates Screen Negative Urine Methadone Screen Negative Ur Barbiturates Screen Negative Ur Phencyclidine Scrn Negative Ur Amphetamines Screen Negative U Benzodiazepines Scrn Negative U Oth Cocaine Metabols Negative U Cannabinoids Screen Negative 09/16/17 11:50 WBC RBC Hgb Hct MCV MCH MCHC RDW Plt Count MPV Gran % Lymph % (Auto) [place] % (Auto) Eos % (Auto) Baso % (Auto) Gran # Lymph # Wol[place] # Eos # Baso # PT INR APTT D-Dimer, Quantitative Sodium Potassium Chloride Carbon Dioxide Anion Gap BUN Creatinine Est GFR ( Amer) Est GFR (Non-Af Amer) Random Glucose Calcium Phosphorus Magnesium Total Bilirubin AST ALT Alkaline Phosphatase Troponin I Total Protein Albumin Globulin Albumin/Globulin Ratio Free T4 Total T3 TSH 3rd Generation Urine Color Yellow Urine Appearance Clear Urine pH 6.0 Ur Specific [place] >= 1.030 Urine Protein Negative Urine Glucose (UA) Negative Urine Ketones Negative Urine Blood Trace-intact H Urine Nitrate Negative Urine Bilirubin Negative Urine Urobilinogen 0.2 Ur Leukocyte Esterase Negative Urine RBC 2 - 5 Urine WBC 0 - 2 Ur Epithelial Cells 6 - 8 Amorphous Sediment Few Urine Bacteria Mod Urine Other Uyeast Urine Opiates Screen Urine Methadone Screen Ur Barbiturates Screen Ur Phencyclidine Scrn Ur Amphetamines Screen U Benzodiazepines Scrn U Oth Cocaine Metabols U Cannabinoids Screen Assessment & Plan - Assessment and Plan (Free Text) Plan: A 47 year old female, whose PMHx includes substance abuse (marijuana), PTSD on Sertraline, Hx Bojorquez's palsy, HTN, c/o slurring of speech x 2 days associated with numbness and pressure sensation of R face, face drooping, loss of balance, gait disturbance and slow in reaction time. - Suspected ischemic stroke r/o cardiac, neurology, substance abuse etiology - R/O overdose - asymptomatic bactereuria - elevated D-dimer - Family Hx of premature cardiac . c/o slurring of speech x 2days Plan - CTA - trops - LE doppler b/l - MRI, MRA - echocardiogram - telemetry - EKG AM - CT head - UDS - lipid panel - ASA, lipitor 40 - PT, OT, ST - NPO pending swallow eval. IVF Consults - Neurology - Dr. Cheatham - Cardiology - Dr. Parson - Psych - Dr Green s/d/r/s Dr. Zamudio
[2017-09-16] MEDS: Enoxaparin 40 mg Syringe SC SCH (15:12)
[2017-09-16 17:02] VITALS: BMI 40.8
[2017-09-16] MEDS ORDERED: Influenza Vaccine 60 mcg/0.5 mL SYR (4YR UP) IM ONE (17:03)
[2017-09-16] MEDS ORDERED: Pneumococcal 23-Valent Vaccine IM ONE (17:03)
[2017-09-16] MEDS ORDERED: Sodium Chloride 0.9% 1,000 ML IV SCH (17:45)
--- NOTE | 2017-09-16 19:36 | MRI ---
EXAM: MR Head Without Intravenous Contrast CLINICAL HISTORY: 47 years old, female; Signs and symptoms; Other: ? Stroke; Additional info: ? Stroke TECHNIQUE: Magnetic resonance images of the head/brain without intravenous contrast in multiple planes. COMPARISON: CTA HEAD NECK BUNDLE 2017-09-16 13:42 FINDINGS: Brain: Unremarkable. No mass. No acute or subacute hemorrhage. No acute cerebral infarction. No abnormal signal intensity on either T2-weighted sequences or flair to suggest a demyelinating disorder. Ventricles: Unremarkable. No ventriculomegaly. Bones/joints: Unremarkable. Sinuses: Unremarkable as visualized. No acute sinusitis. Mastoid air cells: Unremarkable as visualized. No mastoid effusion. Orbits: Unremarkable as visualized. IMPRESSION: No acute cerebral infarction. No acute or subacute hemorrhage. No abnormal signal intensity to suggest a demyelinating disorder.
--- NOTE | 2017-09-16 19:39 | MRI ---
EXAM: MR Angiography Head Without Intravenous Contrast CLINICAL HISTORY: 47 years old, female; Signs and symptoms; Other: ? Stroke; Additional info: ? Stroke TECHNIQUE: Magnetic resonance angiography images of the head without intravenous contrast. COMPARISON: CTA HEAD NECK BUNDLE 2017-09-16 13:42 FINDINGS: Right internal carotid artery: No acute findings. Intracranial segment is patent with no significant stenosis. No aneurysm. Right anterior cerebral artery: Unremarkable. No occlusion or significant stenosis. No aneurysm. Right middle cerebral artery: Unremarkable. No occlusion or significant stenosis. No aneurysm. Right posterior cerebral artery: Unremarkable. No occlusion or significant stenosis. No aneurysm. Right vertebral artery: Right dominant. Left internal carotid artery: No acute findings. Intracranial segment is patent with no significant stenosis. No aneurysm. Left anterior cerebral artery: Unremarkable. No occlusion or significant stenosis. No aneurysm. Left middle cerebral artery: Unremarkable. No occlusion or significant stenosis. No aneurysm. Left posterior cerebral artery: Unremarkable. No occlusion or significant stenosis. No aneurysm. Left vertebral artery: Patent, with right dominance. Basilar artery: Unremarkable. No occlusion or significant stenosis. No aneurysm. IMPRESSION: Unremarkable MRA examination of the brain, as detailed above.
--- NOTE | 2017-09-16 20:05 | CARD ---
APPROVED REPORT EXAM: Two-dimensional and M-mode echocardiogram with Doppler and color Doppler. INDICATION STROKE? 2D DIMENSIONS Left Atrium (2D)3.8 (1.6-4.0cm)IVSd0.8 (0.7-1.1cm) LVDd4.9 (3.9-5.9cm)PWd1.0 (0.7-1.1cm) LVDs3.1 (2.5-4.0cm)FS (%) 37.4 % LVEF (%)67.2 (>50%) M-Mode DIMENSIONS Aortic Root3.20 (2.2-3.7cm)Aortic Cusp Exc.2.00 (1.5-2.0cm) Aortic Valve AoV Peak Havtttfw901.0cm/Sarabjit Peak GR.7mmHg Mitral Valve MV E Cqlvujfm40.7cm/sMV A Yjgwtfdi94.2cm/sE/A ratio1.0 TDI Lateral E' Peak V13.60cm/sMedial E' Peak V8.38cm/sE/Lateral E'5.5 E/Medial E'8.9 Pulmonary Valve PV Peak Jjahnmeo36.3cm/sPV Peak Grad.2mmHg Tricuspid Valve TR Peak Cfclcabj415ou/sRAP XIJVKVPA33ngKmLQ Peak Gr.9mmHg [id number] LEFT VENTRICLE The left ventricle is normal size. There is normal left ventricular wall thickness. The left ventricular function is normal. The left ventricular ejection fraction is within the normal range. There is normal LV segmental wall motion. Transmitral Doppler flow pattern is Grade I-abnormal relaxation pattern. RIGHT VENTRICLE The right ventricle is normal size. There is normal right ventricular wall thickness. The right ventricular systolic function is normal. ATRIA The left atrium size is normal. The right atrium size is normal. AORTIC VALVE The aortic valve is not well visualized. No aortic regurgitation is present. There is no aortic valvular stenosis. MITRAL VALVE The mitral valve is normal in structure. There is no mitral valve regurgitation noted. TRICUSPID VALVE The tricuspid valve is normal in structure. There is no tricuspid valve regurgitation noted. GREAT VESSELS The aortic root is normal in size. The IVC was not visualized. <Conclusion> The left ventricle is normal size. There is normal left ventricular wall thickness. The left ventricular function is normal. The left ventricular ejection fraction is within the normal range. There is normal LV segmental wall motion. Transmitral Doppler flow pattern is Grade I-abnormal relaxation pattern.
[2017-09-16] MEDS ORDERED: Enoxaparin 60 mg Syringe SC STA (20:21)
[2017-09-16] MEDS: Sodium Chloride 0.9% 1,000 ML IV SCH (22:12)
--- NOTE | 2017-09-16 22:24 | US ---
HISTORY: Leg pain and swelling. Evaluate for DVT PHYSICIAN(S): Jose Cloud MD. TECHNIQUE: Duplex sonography and color-flow Doppler with graded compression were used to evaluate the deep venous systems of both lower extremities. FINDINGS: The visualized deep venous systems of both lower extremities are sonographically normal and compressible. Normal wave forms and augmentation are seen. There is no sonographic evidence for deep venous thrombosis in the visualized segments of both lower extremities. IMPRESSION: No sonographic evidence for deep venous thrombosis in the visualized segments of both lower extremities.
--- NOTE | 2017-09-16 22:25 | US ---
PROCEDURE: Bilateral carotid artery duplex ultrasound HISTORY: Carotid stenosis TIA PHYSICIAN(S): Jose Cloud MD. TECHNIQUE: Duplex sonography and color-flow Doppler were used to evaluate the carotid bifurcations and limited segments of the vertebral arteries bilaterally. FINDINGS: There is mild smooth hypoechoic plaque noted at the carotid bifurcations bilaterally. The peak systolic velocity in the proximal right internal carotid artery is 87 cm/sec. This corresponds to a 0-19 percent proximal right ICA stenosis. Normal systolic velocities are noted in the proximal right external carotid artery. There is antegrade flow in the right vertebral artery. The peak systolic velocity in the proximal left internal carotid artery is 60 cm/sec. This corresponds to a 0-19 percent proximal left ICA stenosis. Normal systolic velocities are noted in the proximal left external carotid artery. There is antegrade flow in the left vertebral artery. IMPRESSION: 1. Bilateral 0-19 percent proximal ICA stenoses. 2. Antegrade flow in both vertebral arteries.
--- NOTE | 2017-09-16 23:34 | CARD ---
APPROVED REPORT EKG Measurement Heart [id number] AL 150P25 [id number] <Conclusion> Poor data quality, interpretation may be adversely affected Sinus bradycardia Otherwise normal ECG
[2017-09-17] MEDS: Fluconazole IV 200mg/100 ml NS 100 ML IVPB SCH ×2 (00:58→10:00)
[2017-09-17] MEDS: Sodium Chloride 0.9% 1,000 ML IV SCH ×2 (04:32→12:22)
--- NOTE | 2017-09-17 06:14 | HP ---
ADDENDUM The patient is seen in the stretcher #17 in the emergency room. The patient was seen and examined with the rn medical surgical, Dr. Feliciano and Dr. Noyola. For entire details of history and physical examination, please refer to the history and physical examination by Dr. Jenny Feliciano, PGY2. The patient was examined and all diagnostic data reviewed. The patient was examined with the rn medical surgical. The patient's at bedside. The patient's vital signs, diagnostic data, imaging studies, radiological studies, and other diagnostic data was reviewed. IMPRESSION: 1. Slurred speech. 2. Questionable disequilibrium. 3. Questionable right-sided sensory paresthesias versus sensory transient ischemic attack, etiology unclear. 4. Morbid obesity. 5. Hypertension. 6. History of hypertension, history of posttraumatic stress disorder, history of depression, and history of hysterectomy. 7. History of tonsillectomy, history of fibromyalgia, history of herniated disk, history of posttraumatic stress disorder, history of depression, history of alcohol use, history of asthma, and history of nicotine dependence. 8. Elevated d-dimer of 271. 9. Microscopic hematuria, bacteriuria, and funguria. 10. Questionable right-sided facial paresthesias versus questionable right-sided sensory transient ischemic attack. 11. Disequilibrium, etiology undetermined. 12. Sinus bradycardia, etiology undetermined. 13. History of marijuana abuse, history of posttraumatic stress disorder, history of Bojorquez's palsy, and history of hypertension. 14. Questionable right facial paresthesias. 15. Questionable history of angina, history of lumbar disk disease, history of depression, history of hysterectomy, and history of inpatient psychiatric hospitalization. 16. Nicotine dependence. 17. Bacteriuria. 18. Questionable dysarthria with slurred speech, etiology undetermined. 19. Disequilibrium. 20. Gait dysfunction. 21. Elevated D-dimer. PLAN: At this time, the patient will be admitted to [facility] telemetry. Serial cardiac enzymes ordered. Lipid panel ordered. Thyroid panel ordered. C-reactive protein and ESR ordered. Urine cultures ordered. Cardiology, Neurology, and Psychiatry consultation ordered. Lyme titers ordered. RPR ordered. The patient has been also ordered thyroid panel and urine drug screen. The patient has been ordered echocardiogram and repeat EKG. The patient is awaiting CTA of the neck and head, which is ordered by the ER physician. Carotid ultrasound, venous Doppler of the lower extremity, MRI, and MRA of the brain ordered. Echocardiogram ordered. Repeat EKG ordered. The patient will be admitted to telemetry with Cardiology, Neurology, and Psychiatry evaluation. The patient will be resumed on most of her home medications including Carafate 1 g daily and Desyrel 50 or 100 mg daily. The patient will be started on aspirin 81 mg daily, Lipitor 40 mg daily, Lovenox 40 mg subcutaneously daily, Neurontin 100 twice a day, and Protonix 40 mg daily. The patient will be hydrated for IV contrast studies and 0.9 normal saline at 125 mL an hour. The patient's Zoloft will be resumed at 12.5 mg daily. The patient has been ordered a CTA chest. The patient has been ordered heart-healthy diet. The patient has been ordered physical therapy and occupational therapy. Speech therapy and swallowing evaluation ordered. Dictated and electronically signed, not read. Alex Zamudio MD
[2017-09-17 07:45] LABS: INR 0.96 (0.93-1.08)
[2017-09-17 07:49] LABS: ALB/GLOB RATIO 1.2 (1.1-1.8); ALKALINE PHOSPHATASE 31 U/L (38-126); ALT/SGPT 55 U/L (7-56); AST/SGOT 39 U/L (14-36); BILIRUBIN,TOTAL 0.4 mg/dL (0.2-1.3); BLOOD UREA NITROGEN 14 mg/dL (7-21); CALCIUM 9.3 mg/dL (8.4-10.5); CARBON DIOXIDE 29 mmol/L (21-33); CHLORIDE 109 mmol/L (98-107); CHOLESTEROL 238 mg/dL (130-200); GFR AFRICAN-AMERICAN > 60; GLUCOSE,RANDOM 116 mg/dL (70-110); POTASSIUM 4.2 mmol/L (3.6-5.0); SODIUM 141 mmol/L (132-148); TOTAL PROTEIN 6.5 g/dL (5.8-8.3)
[2017-09-17 08:01] LABS: HEMATOCRIT 41.3 % (36.0-48.0); MEAN CORPUSCULAR HEMOGLOBIN 31.1 pg (25.0-35.0); MEAN CORPUSCULAR HGB CONC 34.1 g/dl (31.0-37.0); MEAN PLATELET VOLUME 9.7 fl (7.0-11.0); RED CELL DISTRIBUTION WIDTH 13.5 % (11.5-14.5); WHITE BLOOD COUNT 5.6 10^3/ul (4.5-11.0)
[2017-09-17] MEDS ORDERED: Iohexol 350 MG/100 ML VIAL ONE (09:23)
[2017-09-17] MEDS: Enoxaparin 40 mg Syringe SC SCH (09:52)
[2017-09-17] MEDS: Omega-3-Acid Ethyl Esters 1 GM Cap PO SCH ×2 (09:53→17:58)
--- NOTE | 2017-09-17 10:45 | CARD ---
APPROVED REPORT EKG Measurement Heart [id number] DC 168P46 [id number] <Conclusion> Sinus bradycardia Otherwise normal ECG
--- NOTE | 2017-09-17 10:58 | CT ---
PROCEDURE: CT Chest with contrast (Pulmonary Angiogram) HISTORY: r/o PE COMPARISON: None available. TECHNIQUE: Axial computed tomography images were obtained of the chest in the pulmonary arterial phase of enhancement. Coronal and sagittal reformatted images were created and reviewed. Intravenous contrast dose: 100 cc of Omni 350 Radiation dose: Total exam DLP = 725 mGy-cm. This CT exam was performed using one or more of the following dose reduction techniques: Automated exposure control, adjustment of the mA and/or kV according to patient size, and/or use of iterative reconstruction technique. FINDINGS: PULMONARY ARTERIES: Unremarkable. No pulmonary embolism. AORTA: No acute findings. No thoracic aortic aneurysm. LUNGS: Unremarkable. No nodule, mass or pulmonary consolidation. PLEURAL SPACES: Unremarkable. No effusion or pneuomothorax. HEART: Unremarkable. No cardiomegaly. No significant pericardial effusion. LYMPH NODES: No lymphadenopathy. BONES, CHEST WALL: Unremarkable. No fracture or destructive lesion OTHER FINDINGS: Unremarkable. IMPRESSION: Unremarkable CT pulmonary angiogram. No pulmonary embolus.
[2017-09-17 13:23] LABS: FOLATE 8.5 ng/mL
--- NOTE | 2017-09-17 13:25 | CP.PCM.CON ---
<Cristina Sethi - Last Filed: 09/17/17 13:26> History of Present Illness - History of Present Illness History of Present Illness: This 47 year old female was seen at her bedside. Consult was requested due to concerns over slow responses and psych history. Patient indicates that she has a long history of PTSD and depression. Her father in December and she recently went to his apartment in [place] to settle the estate. She feel she has been stable and doing well until the last couple of days. She sees Dr Merida outpatient for medication and a therapist in the same building. She missed her last appointments with both recently. She smoked pot for the first time two days prior to admission. The pot belonged to one of her children and she felt it "really didn't do anything' so does not plan to continue using. She has a history of alcoholism, indicates she has not had a drink in a year and a half. Her current psychiatric medications are Zoloft 100mg 1 daily, Temazepam 30mg 1 at bedtime, Wellbutrin 150mg 1 in the morning, and Vyvanse 50mg 1 po daily in the morning verified by pharmacist at [facility] [phone]. She is worried that there is "no answer" for her symptoms that brought her to the ER, but otherwise feels she is ready for discharge. She denies any current psychiatric symptoms except for longterm sleep issues, a sleep study was suggested. She plans to see her psychiatrist and therapist and continue with her present medications upon discharge. Past Patient History - Infectious Disease Hx of Infectious Diseases: None - Past Social History Smoking Status: Heavy Smoker > 10 Cigarettes Daily - CARDIAC Hx Hypertension: Yes - PULMONARY Hx Asthma: Yes - NEUROLOGICAL Hx Neurological Disorder: No - HEENT Hx HEENT Problems: No - RENAL Hx Chronic Kidney Disease: No - ENDOCRINE/METABOLIC Hx Endocrine Disorders: No - HEMATOLOGICAL/ONCOLOGICAL Hx Blood Disorders: No - INTEGUMENTARY Hx Dermatological Problems: No - MUSCULOSKELETAL/RHEUMATOLOGICAL Hx Falls: No Hx Herniated Disk: Yes - GASTROINTESTINAL Hx Gastrointestinal Disorders: No - GENITOURINARY/GYNECOLOGICAL Hx Genitourinary Disorders: No - PSYCHIATRIC Hx Depression: Yes Hx Post Traumatic Stress Disorder: Yes Hx Substance Use: No - SURGICAL HISTORY Hx Hysterectomy: Yes - ANESTHESIA Hx Anesthesia: Yes Hx Anesthesia Reactions: No Hx Malignant Hyperthermia: No Meds Home Medications: Home Medication List Medication Instructions Recorded Confirmed Type Aspirin [Ecotrin] 81 mg PO 0800 #30 tabec 09/17/17 Rx Atorvastatin [Lipitor] 40 mg PO DIN #30 tab 09/17/17 Rx Aczch-7-Hdnl Ethyl Esters 1 GM 2 gm PO BID #120 sgl 09/17/17 Rx [Lovaza] Pantoprazole [Protonix Inj] 40 mg PO DAILY #30 tab 09/17/17 Rx Allergies/Adverse Reactions: Allergies Allergy/AdvReac Type Severity Reaction Status Date / Time No Known Allergies Allergy Verified 09/16/17 10:35 - Medications Medications: Current Medications Aspirin (Ecotrin) 81 mg PO 0800 [facility] Last Admin: 09/17/17 09:54 Dose: 81 mg Atorvastatin Calcium (Lipitor) 40 mg PO DIN [facility] Last Admin: 09/16/17 18:37 Dose: 40 mg Enoxaparin Sodium (Lovenox) 40 mg SC DAILY [facility] PRN Reason: Protocol Last Admin: 09/17/17 09:52 Dose: 40 mg Gabapentin (Neurontin) 100 mg PO BID [facility] PRN Reason: Protocol Last Admin: 09/17/17 09:53 Dose: 100 mg Sodium Chloride (Sodium Chloride 0.9%) 1,000 mls @ 125 mls/hr IV .Q8H [facility] Stop: 09/18/17 09:44 Last Admin: 09/17/17 04:32 Dose: 125 mls/hr Fluconazole (Diflucan Iv 200 Mg/100 Ml Ns) 100 mls @ 100 mls/hr IVPB DAILY [facility] PRN Reason: Protocol Last Admin: 09/17/17 00:58 Dose: 100 mls/hr Iigut-9-Jepe Ethyl Esters (Lovaza) 2 gm PO BID [facility] Last Admin: 09/17/17 09:53 Dose: 2 gm Pantoprazole Sodium (Protonix Ec Tab) 40 mg PO DAILY [facility] Sertraline HCl (Zoloft) 12.5 mg PO DAILY [facility] Last Admin: 09/17/17 09:54 Dose: 12.5 mg Sucralfate (Carafate Tab) 1 gm PO DAILY [facility] Last Admin: 09/17/17 09:53 Dose: 1 gm Trazodone HCl (Desyrel) 100 mg PO HS [facility] Last Admin: 09/16/17 22:12 Dose: 100 mg Results - Vital Signs Recent Vital Signs: Last Vital Signs Temp 98.3 F 09/17/17 12:00 Pulse 56 L 09/17/17 12:00 Resp 18 09/17/17 12:00 BP 139/84 09/17/17 12:00 Pulse Ox 97 09/17/17 06:00 - Labs Result Diagrams: 09/17/17 06:45 09/17/17 06:45 Labs: Laboratory Results - last 24 hr 09/16/17 09/16/17 09/16/17 15:00 15:00 15:00 WBC RBC Hgb Hct MCV MCH MCHC RDW Plt Count MPV ESR PT INR Sodium Potassium Chloride Carbon Dioxide Anion Gap BUN Creatinine Est GFR ( Amer) Est GFR (Non-Af Amer) Random Glucose Hemoglobin A1c Calcium Total Bilirubin AST ALT Alkaline Phosphatase Troponin I < 0.01 C-React Prot High Sens Total Protein Albumin Globulin Albumin/Globulin Ratio Triglycerides Cholesterol LDL Cholesterol Direct HDL Cholesterol 25-OH Vitamin D Total Beta HCG, Quant < 2.39 Alcohol, Quantitative < 10 09/16/17 09/17/17 09/17/17 19:44 00:30 06:45 WBC 5.6 D RBC 4.54 Hgb 14.1 Hct 41.3 MCV 91.0 MCH 31.1 MCHC 34.1 RDW 13.5 Plt Count 249 MPV 9.7 ESR 15 PT INR Sodium Potassium Chloride Carbon Dioxide Anion Gap BUN Creatinine Est GFR ( Amer) Est GFR (Non-Af Amer) Random Glucose Hemoglobin A1c Calcium Total Bilirubin AST ALT Alkaline Phosphatase Troponin I < 0.01 < 0.01 C-React Prot High Sens Total Protein Albumin Globulin Albumin/Globulin Ratio Triglycerides Cholesterol LDL Cholesterol Direct HDL Cholesterol 25-OH Vitamin D Total Beta HCG, Quant Alcohol, Quantitative 09/17/17 09/17/17 09/17/17 06:45 06:45 06:45 WBC RBC Hgb Hct MCV MCH MCHC RDW Plt Count MPV ESR PT INR Sodium 141 Potassium 4.2 Chloride 109 H Carbon Dioxide 29 Anion Gap 8 L BUN 14 Creatinine 0.8 Est GFR ( Amer) > 60 Est GFR (Non-Af Amer) > 60 Random Glucose 116 H Hemoglobin A1c 6.2 Calcium 9.3 Total Bilirubin 0.4 AST 39 H D ALT 55 Alkaline Phosphatase 31 L Troponin I C-React Prot High Sens 2.39 Total Protein 6.5 Albumin 3.5 Globulin 3.0 Albumin/Globulin Ratio 1.2 Triglycerides 247 H Cholesterol 238 H LDL Cholesterol Direct 177 H HDL Cholesterol 37 25-OH Vitamin D Total Beta HCG, Quant Alcohol, Quantitative 09/17/17 09/17/17 06:45 06:45 WBC RBC Hgb Hct MCV MCH MCHC RDW Plt Count MPV ESR PT 10.5 INR 0.96 Sodium Potassium Chloride Carbon Dioxide Anion Gap BUN Creatinine Est GFR ( Amer) Est GFR (Non-Af Amer) Random Glucose Hemoglobin A1c Calcium Total Bilirubin AST ALT Alkaline Phosphatase Troponin I C-React Prot High Sens Total Protein Albumin Globulin Albumin/Globulin Ratio Triglycerides Cholesterol LDL Cholesterol Direct HDL Cholesterol 25-OH Vitamin D Total < 12.8 L Beta HCG, Quant Alcohol, Quantitative <Norma Kent - Last Filed: 09/17/17 17:10> History of Present Illness - History of Present Illness History of Present Illness: patient was seen today with nurse practitioner, medications reviewed, called to the pharmacy, confirmed, see above. Patient reported that she is compliant with the medications, patient reported that she was doing well, was seeing Dr. Tevin Chew, pt also has therapist at "[facility]". pt denied being depressed, denied thoughts of harmingself or others, denied intent or plan. Patient denied feeling anxious, patient denied hearing voices or seeing things, denied paranoid ideation. pt reported feeling "offended when ED doctor said that I need to change my life style, I smoke weed only once and he made assumption that I am using drugs..." of note UDS negative for cannabis. patient's speech is normal rate, there is no slurring with pt's speech. mental status examination: Patient presented to be alert, oriented, at times tearful, mood described "I was doing very well", thought process was coherent and goal directed, thought content: Patient denied hearing voices denied seeing things denied paranoid ideations, denied thoughts of harming herself or others denied intent or plan. Insight and judgment are fare, impulses are well controlled. Impression: Self reported history of PTSD Rule out adjustment disorder, patient's father in December History of major depressive disorder Plan: Meds confirmed with [facility] is nonformulary Zoloft was resumed 100 mg daily for depression and anxiety Wellbutrin will be held Vyvanse is nonformulary in the hospital, will NOT recommend to continue case of insomnia patient is on trazodone Patient pose no imminent danger to self or others, this typewriter mechanic will sign off Patient has follow-up appointment with the [facility] will be f/u with and psychologist Meds - Medications Medications: Current Medications Aspirin (Ecotrin) 81 mg PO 0800 [facility] Last Admin: 09/17/17 09:54 Dose: 81 mg Atorvastatin Calcium (Lipitor) 40 mg PO DIN [facility] Last Admin: 09/16/17 18:37 Dose: 40 mg Enoxaparin Sodium (Lovenox) 40 mg SC DAILY [facility] PRN Reason: Protocol Last Admin: 09/17/17 09:52 Dose: 40 mg Gabapentin (Neurontin) 100 mg PO BID [facility] PRN Reason: Protocol Last Admin: 09/17/17 09:53 Dose: 100 mg Sodium Chloride (Sodium Chloride 0.9%) 1,000 mls @ 125 mls/hr IV .Q8H [facility] Stop: 09/18/17 09:44 Last Admin: 09/17/17 12:22 Dose: 125 mls/hr Fluconazole (Diflucan Iv 200 Mg/100 Ml Ns) 100 mls @ 100 mls/hr IVPB DAILY [facility] PRN Reason: Protocol Last Admin: 09/17/17 10:00 Dose: 100 mls/hr Lioyq-1-Axyo Ethyl Esters (Lovaza) 2 gm PO BID [facility] Last Admin: 09/17/17 09:53 Dose: 2 gm Pantoprazole Sodium (Protonix Ec Tab) 40 mg PO DAILY [facility] Sertraline HCl (Zoloft) 100 mg PO DAILY [facility] Sucralfate (Carafate Tab) 1 gm PO DAILY [facility] Last Admin: 09/17/17 09:53 Dose: 1 gm Trazodone HCl (Desyrel) 100 mg PO HS [facility] Last Admin: 09/16/17 22:12 Dose: 100 mg Results - Vital Signs Recent Vital Signs: Last Vital Signs Temp 98.3 F 09/17/17 12:00 Pulse 56 L 09/17/17 12:00 Resp 18 09/17/17 12:00 BP 139/84 09/17/17 12:00 Pulse Ox 97 09/17/17 06:00 - Labs Result Diagrams: 09/17/17 06:45 09/17/17 06:45 Labs: Laboratory Results - last 24 hr 09/16/17 09/16/17 09/17/17 15:00 19:44 00:30 WBC RBC Hgb Hct MCV MCH MCHC RDW Plt Count MPV ESR PT INR Sodium Potassium Chloride Carbon Dioxide Anion Gap BUN Creatinine Est GFR ( Amer) Est GFR (Non-Af Amer) Random Glucose Hemoglobin A1c Calcium Total Bilirubin AST ALT Alkaline Phosphatase Troponin I < 0.01 < 0.01 C-React Prot High Sens Total Protein Albumin Globulin Albumin/Globulin Ratio Triglycerides Cholesterol LDL Cholesterol Direct HDL Cholesterol Vitamin B12 25-OH Vitamin D Total Folate Beta HCG, Quant < 2.39 09/17/17 09/17/17 09/17/17 06:45 06:45 06:45 WBC 5.6 D RBC 4.54 Hgb 14.1 Hct 41.3 MCV 91.0 MCH 31.1 MCHC 34.1 RDW 13.5 Plt Count 249 MPV 9.7 ESR 15 PT INR Sodium 141 Potassium 4.2 Chloride 109 H Carbon Dioxide 29 Anion Gap 8 L BUN 14 Creatinine 0.8 Est GFR ( Amer) > 60 Est GFR (Non-Af Amer) > 60 Random Glucose 116 H Hemoglobin A1c Calcium 9.3 Total Bilirubin 0.4 AST 39 H D ALT 55 Alkaline Phosphatase 31 L Troponin I C-React Prot High Sens 2.39 Total Protein 6.5 Albumin 3.5 Globulin 3.0 Albumin/Globulin Ratio 1.2 Triglycerides 247 H Cholesterol 238 H LDL Cholesterol Direct 177 H HDL Cholesterol 37 Vitamin B12 444 25-OH Vitamin D Total Folate 8.5 Beta HCG, Quant 09/17/17 09/17/17 09/17/17 06:45 06:45 06:45 WBC RBC Hgb Hct MCV MCH MCHC RDW Plt Count MPV ESR PT 10.5 INR 0.96 Sodium Potassium Chloride Carbon Dioxide Anion Gap BUN Creatinine Est GFR ( Amer) Est GFR (Non-Af Amer) Random Glucose Hemoglobin A1c 6.2 Calcium Total Bilirubin AST ALT Alkaline Phosphatase Troponin I C-React Prot High Sens Total Protein Albumin Globulin Albumin/Globulin Ratio Triglycerides Cholesterol LDL Cholesterol Direct HDL Cholesterol Vitamin B12 25-OH Vitamin D Total < 12.8 L Folate Beta HCG, Quant
--- NOTE | 2017-09-17 13:53 | CP.PCM.CON ---
History of Present Illness - History of Present Illness History of Present Illness: Ms. Campos whose PMHx includes substance abuse (marijuana), PTSD on Sertraline, Hx Bojorquez's palsy, shingles, HTN, c/o slurring of speech x 4 days. Slowing and slurring of speech started with loss of R facial expression 4 days ago and became noticeable by yesterday. It was associated with numbness and pressure sensation of R face, face drooping, loss of balance, and gait disturbance. She further states of having disequilibrium 4 days ago characterize with her bumping to mitchell and doors. She also claims of experiencing cold sores in her nose a month ago. At present, she is alert, oriented in all spheres. She further states of her speech much clearer today in comparison from yesterday.She denies any headache, dizziness, blurred vision, numbness, weakness, nausea, or vomiting. Review of Systems - Review of Systems All systems: reviewed and no additional remarkable complaints except Past Patient History - Infectious Disease Hx of Infectious Diseases: None - Past Social History Smoking Status: Heavy Smoker > 10 Cigarettes Daily - CARDIAC Hx Hypertension: Yes - PULMONARY Hx Asthma: Yes - NEUROLOGICAL Hx Neurological Disorder: No - HEENT Hx HEENT Problems: No - RENAL Hx Chronic Kidney Disease: No - ENDOCRINE/METABOLIC Hx Endocrine Disorders: No - HEMATOLOGICAL/ONCOLOGICAL Hx Blood Disorders: No - INTEGUMENTARY Hx Dermatological Problems: No - MUSCULOSKELETAL/RHEUMATOLOGICAL Hx Falls: No Hx Herniated Disk: Yes - GASTROINTESTINAL Hx Gastrointestinal Disorders: No - GENITOURINARY/GYNECOLOGICAL Hx Genitourinary Disorders: No - PSYCHIATRIC Hx Depression: Yes Hx Post Traumatic Stress Disorder: Yes Hx Substance Use: No - SURGICAL HISTORY Hx Hysterectomy: Yes - ANESTHESIA Hx Anesthesia: Yes Hx Anesthesia Reactions: No Hx Malignant Hyperthermia: No Meds Home Medications: Home Medication List Medication Instructions Recorded Confirmed Type Aspirin [Ecotrin] 81 mg PO 0800 #30 tabec 09/17/17 Rx Atorvastatin [Lipitor] 40 mg PO DIN #30 tab 09/17/17 Rx [id number]-[id number] Ethyl Esters 1 GM 2 gm PO BID #120 sgl 09/17/17 Rx [Lovaza] Pantoprazole [Protonix Inj] 40 mg PO DAILY #30 tab 09/17/17 Rx Allergies/Adverse Reactions: Allergies Allergy/AdvReac Type Severity Reaction Status Date / Time No Known Allergies Allergy Verified 09/16/17 10:35 - Medications Medications: Current Medications Aspirin (Ecotrin) 81 mg PO 0800 [facility] Last Admin: 09/17/17 09:54 Dose: 81 mg Atorvastatin Calcium (Lipitor) 40 mg PO DIN [facility] Last Admin: 09/16/17 18:37 Dose: 40 mg Enoxaparin Sodium (Lovenox) 40 mg SC DAILY [facility] PRN Reason: Protocol Last Admin: 09/17/17 09:52 Dose: 40 mg Gabapentin (Neurontin) 100 mg PO BID [facility] PRN Reason: Protocol Last Admin: 09/17/17 09:53 Dose: 100 mg Sodium Chloride (Sodium Chloride 0.9%) 1,000 mls @ 125 mls/hr IV .Q8H [facility] Stop: 09/18/17 09:44 Last Admin: 09/17/17 04:32 Dose: 125 mls/hr Fluconazole (Diflucan Iv 200 Mg/100 Ml Ns) 100 mls @ 100 mls/hr IVPB DAILY [facility] PRN Reason: Protocol Last Admin: 09/17/17 00:58 Dose: 100 mls/hr Jtnzd-[id number] Ethyl Esters (Lovaza) 2 gm PO BID [facility] Last Admin: 09/17/17 09:53 Dose: 2 gm Pantoprazole Sodium (Protonix Ec Tab) 40 mg PO DAILY [facility] Sertraline HCl (Zoloft) 12.5 mg PO DAILY [facility] Last Admin: 09/17/17 09:54 Dose: 12.5 mg Sucralfate (Carafate Tab) 1 gm PO DAILY [facility] Last Admin: 09/17/17 09:53 Dose: 1 gm Trazodone HCl (Desyrel) 100 mg PO HS [facility] Last Admin: 09/16/17 22:12 Dose: 100 mg Physical Exam - Constitutional Appears: Well - Head Exam Head Exam: ATRAUMATIC, NORMAL INSPECTION - Eye Exam Eye Exam: EOMI, Normal appearance, PERRL - Neck Exam Neck exam: Positive for: Normal Inspection - Neurological Exam Neurological exam: Alert, CN II-XII Intact, Oriented x3, Reflexes Normal - Expanded Neurological Exam Expanded Patient oriented to: person, place, time Cranial nerves: EOM's Intact: Normal, Facial Sensation: Normal, Tongue Deviation : Normal Ataxia: No Cerebellar Function: Finger to Nose: Normal, Heel to Domingo: Normal, Romberg: Normal Upper motor neuron: Babinski Sign: Normal, Sensory Extinction: Normal Sensory exam: Lower Extremity 2 Point Discrimination: Normal, Lower Extremity Light Touch: Normal, Lower Extremity Pin Prick: Normal, Lower Extremity Temperature: Normal, Upper Extremity 2 Point Discrimination: Normal, Upper Extremity Light Touch: Normal, Upper Extremity Pin Prick: Normal Neuro motor strength exam: Left Upper Extremity: 5, Right Upper Extremity: 5, Left Lower Extremity: 5, Right Lower Extremity: 5 - Psychiatric Exam Psychiatric exam: Normal Affect, Normal Mood Results - Vital Signs Recent Vital Signs: Last Vital Signs Temp 98.3 F 09/17/17 12:00 Pulse 56 L 09/17/17 12:00 Resp 18 09/17/17 12:00 BP 139/84 09/17/17 12:00 Pulse Ox 97 09/17/17 06:00 - Labs Result Diagrams: 09/17/17 06:45 09/17/17 06:45 Labs: Laboratory Results - last 24 hr 09/16/17 09/16/17 09/16/17 15:00 15:00 15:00 WBC RBC Hgb Hct MCV MCH MCHC RDW Plt Count MPV ESR PT INR Sodium Potassium Chloride Carbon Dioxide Anion Gap BUN Creatinine Est GFR ( Amer) Est GFR (Non-Af Amer) Random Glucose Hemoglobin A1c Calcium Total Bilirubin AST ALT Alkaline Phosphatase Troponin I < 0.01 C-React Prot High Sens Total Protein Albumin Globulin Albumin/Globulin Ratio Triglycerides Cholesterol LDL Cholesterol Direct HDL Cholesterol Vitamin B12 25-OH Vitamin D Total Folate Beta HCG, Quant < 2.39 Alcohol, Quantitative < 10 09/16/17 09/17/17 09/17/17 19:44 00:30 06:45 WBC 5.6 D RBC 4.54 Hgb 14.1 Hct 41.3 MCV 91.0 MCH 31.1 MCHC 34.1 RDW 13.5 Plt Count 249 MPV 9.7 ESR 15 PT INR Sodium Potassium Chloride Carbon Dioxide Anion Gap BUN Creatinine Est GFR ( Amer) Est GFR (Non-Af Amer) Random Glucose Hemoglobin A1c Calcium Total Bilirubin AST ALT Alkaline Phosphatase Troponin I < 0.01 < 0.01 C-React Prot High Sens Total Protein Albumin Globulin Albumin/Globulin Ratio Triglycerides Cholesterol LDL Cholesterol Direct HDL Cholesterol Vitamin B12 25-OH Vitamin D Total Folate Beta HCG, Quant Alcohol, Quantitative 09/17/17 09/17/17 09/17/17 06:45 06:45 06:45 WBC RBC Hgb Hct MCV MCH MCHC RDW Plt Count MPV ESR PT INR Sodium 141 Potassium 4.2 Chloride 109 H Carbon Dioxide 29 Anion Gap 8 L BUN 14 Creatinine 0.8 Est GFR ( Amer) > 60 Est GFR (Non-Af Amer) > 60 Random Glucose 116 H Hemoglobin A1c 6.2 Calcium 9.3 Total Bilirubin 0.4 AST 39 H D ALT 55 Alkaline Phosphatase 31 L Troponin I C-React Prot High Sens 2.39 Total Protein 6.5 Albumin 3.5 Globulin 3.0 Albumin/Globulin Ratio 1.2 Triglycerides 247 H Cholesterol 238 H LDL Cholesterol Direct 177 H HDL Cholesterol 37 Vitamin B12 444 25-OH Vitamin D Total Folate 8.5 Beta HCG, Quant Alcohol, Quantitative 09/17/17 09/17/17 06:45 06:45 WBC RBC Hgb Hct MCV MCH MCHC RDW Plt Count MPV ESR PT 10.5 INR 0.96 Sodium Potassium Chloride Carbon Dioxide Anion Gap BUN Creatinine Est GFR ( Amer) Est GFR (Non-Af Amer) Random Glucose Hemoglobin A1c Calcium Total Bilirubin AST ALT Alkaline Phosphatase Troponin I C-React Prot High Sens Total Protein Albumin Globulin Albumin/Globulin Ratio Triglycerides Cholesterol LDL Cholesterol Direct HDL Cholesterol Vitamin B12 25-OH Vitamin D Total < 12.8 L Folate Beta HCG, Quant Alcohol, Quantitative Assessment & Plan - Assessment and Plan (Free Text) Assessment: Intermittent slurred speech: Case discussed with Dr. Cheatham, with CT of the head, MRI of the head , MRA of head and neck, echocardiogram were within normal limits. Recommends the followin. Telemetry 2. Labs: Hypercoagulable work up: prothrombin gene mutation, vitamin D, vitamin B 12, ESR, HSC type 1 and 2. 3. Other labs: HgbA1C, lipid profile 4. PT/OT eval and treat. Thank you!
--- NOTE | 2017-09-17 14:27 | CP.PCM.PN ---
Subjective - Date & Time of Evaluation Date of Evaluation: 09/17/17 Time of Evaluation: 14:23 - Subjective Subjective: PGY-[address] Zamudio Pt was seen in early AM, then at radiation dept, then just now in her room. She tolerated diet, no acute complaint. R face symptoms persists but improves. denies PAT, change of vision, choking, CP, SOB, N/V/D/C, dysuria Objective - Vital Signs/Intake and Output Vital Signs (last 24 hours): Temp Pulse Resp BP Pulse Ox 98.3 F 56 L 18 139/84 97 09/17/17 12:00 09/17/17 12:00 09/17/17 12:00 09/17/17 12:00 09/17/17 06:00 Intake and Output: 09/17/17 09/17/17 06:59 18:59 Intake Total 1999 Output Total 3 Balance 1996 - Medications Medications: Current Medications Aspirin (Ecotrin) 81 mg PO 0800 [facility] Last Admin: 09/17/17 09:54 Dose: 81 mg Atorvastatin Calcium (Lipitor) 40 mg PO DIN [facility] Last Admin: 09/16/17 18:37 Dose: 40 mg Enoxaparin Sodium (Lovenox) 40 mg SC DAILY [facility] PRN Reason: Protocol Last Admin: 09/17/17 09:52 Dose: 40 mg Gabapentin (Neurontin) 100 mg PO BID [facility] PRN Reason: Protocol Last Admin: 09/17/17 09:53 Dose: 100 mg Sodium Chloride (Sodium Chloride 0.9%) 1,000 mls @ 125 mls/hr IV .Q8H [facility] Stop: 09/18/17 09:44 Last Admin: 09/17/17 12:22 Dose: 125 mls/hr Fluconazole (Diflucan Iv 200 Mg/100 Ml Ns) 100 mls @ 100 mls/hr IVPB DAILY [facility] PRN Reason: Protocol Last Admin: 09/17/17 00:58 Dose: 100 mls/hr Atvdu-2-[id number] Ethyl Esters (Lovaza) 2 gm PO BID [facility] Last Admin: 09/17/17 09:53 Dose: 2 gm Pantoprazole Sodium (Protonix Ec Tab) 40 mg PO DAILY [facility] Sertraline HCl (Zoloft) 12.5 mg PO DAILY [facility] Last Admin: 09/17/17 09:54 Dose: 12.5 mg Sucralfate (Carafate Tab) 1 gm PO DAILY [facility] Last Admin: 09/17/17 09:53 Dose: 1 gm Trazodone HCl (Desyrel) 100 mg PO HS [facility] Last Admin: 09/16/17 22:12 Dose: 100 mg - Labs Labs: 09/17/17 06:45 09/17/17 06:45 PT 10.5 SECONDS (9.4-12.5) 09/17/17 06:45 INR 0.96 (0.93-1.08) 09/17/17 06:45 APTT 27.5 Seconds (25.1-36.5) 09/16/17 11:10 - Constitutional Appears: No Acute Distress - Head Exam Head Exam: ATRAUMATIC, NORMAL INSPECTION, NORMOCEPHALIC - Eye Exam Eye Exam: EOMI, Normal appearance, PERRL. absent: Scleral icterus Pupil Exam: NORMAL ACCOMODATION - ENT Exam ENT Exam: Mucous Membranes Moist - Neck Exam Additional comments: supple - Respiratory Exam Respiratory Exam: Clear to Ausculation Bilateral. absent: Rales, Rhonchi, Wheezes - Cardiovascular Exam Cardiovascular Exam: REGULAR RHYTHM, +S1, +S2 - GI/Abdominal Exam GI & Abdominal Exam: Soft, Normal Bowel Sounds. absent: Distended, Guarding, Rigid, Tenderness - Extremities Exam Extremities Exam: absent: Calf Tenderness - Back Exam Back Exam: absent: CVA tenderness (L), CVA tenderness (R) - Neurological Exam Neurological Exam: Alert, Awake, Oriented x3 Neuro motor strength exam: Left Upper Extremity: 5, Right Upper Extremity: 5, Left Lower Extremity: 5, Right Lower Extremity: 5 Additional comments: CN 2 to 4 intact R face decrease sensation. frontalis weak on L. No facial droop noted tongue, uvula mid-line cn 11 intact rapid alternating movement intact gait normal (observed 5 steps) - Psychiatric Exam Psychiatric exam: Depressed, Normal Affect, Normal Mood - Skin Skin Exam: Dry, Warm Assessment and Plan - Assessment and Plan (Free Text) Plan: A 47 year old female, whose PMHx includes substance abuse (marijuana last used the day before admission), PTSD on Sertraline, Hx Bojorquez's palsy, HTN, c/o slurring of speech x 2 days associated with numbness and pressure sensation of R face, face drooping, loss of balance, gait disturbance and slow in reaction time. Dysarthria, Intermittent slurred speech. Suspected neurologic vs cardiac orgin vs substance abuse etiology - Has ruled out stroke - R/O overdose - asymptomatic bactereuria with fungeuria - Family Hx of premature cardiac . c/o slurring of speech x 2days - Asymptomatic Sinus bradycardia 45-50s - Dyslipidemia Plan - CTA, CT head, MRI, MRA of head negative - F/u with Dr. Yan outpatient - trops neg x 4, 0-19% stenosed ICA b/l, sinus, echocardiogram wnl, no EKG changes - LE doppler b/l - Continue telemetry - UDS negative - lipid panel: cholesterol 238, LDL 177; Tsh nl - started ASA, lipitor 40 - PT, OT, ST Consults - Neurology - Dr. Cheatham - Cardiology - Dr. Parson - Psych - Dr Green Discharge plan - home pending cardiac clearance s/d/r/s Dr. Zamudio
[2017-09-17] MEDS ORDERED: Ergocalciferol 50,000 Intl Units Cap PO SCH (19:45)
[2017-09-18] MEDS: Sodium Chloride 0.9% 1,000 ML IV SCH (00:11)
[2017-09-18 06:21] LABS: BASO # 0.03 K/mm3 (0.0-2.0); BASO % 0.5 % (0.0-3.0); EOS # 0.2 (0.0-0.7); EOS % 3.6 % (1.5-5.0); GRAN # 3.18 (1.4-6.5); GRAN % 54.7 % (50.0-68.0); HEMATOCRIT 38.3 % (36.0-48.0); LYMPH # 2.1 (1.2-3.4); LYMPH % 35.2 % (22.0-35.0); MEAN CELL VOLUME 92.3 fl (80.0-105.0); MEAN CORPUSCULAR HEMOGLOBIN 30.1 pg (25.0-35.0); MEAN CORPUSCULAR HGB CONC 32.6 g/dl (31.0-37.0); MEAN PLATELET VOLUME 9.4 fl (7.0-11.0); MONO # 0.4 (0.1-0.6); RED CELL DISTRIBUTION WIDTH 13.4 % (11.5-14.5); WHITE BLOOD COUNT 5.8 10^3/ul (4.5-11.0)
[2017-09-18 06:32] VITALS: O2SAT 96
[2017-09-18 06:41] LABS: ALB/GLOB RATIO 1.1 (1.1-1.8); ALKALINE PHOSPHATASE 26 U/L (38-126); ALT/SGPT 48 U/L (7-56); AST/SGOT 37 U/L (14-36); BILIRUBIN,TOTAL 0.4 mg/dL (0.2-1.3); BLOOD UREA NITROGEN 15 mg/dL (7-21); CALCIUM 9.2 mg/dL (8.4-10.5); CARBON DIOXIDE 25 mmol/L (21-33); CHLORIDE 108 mmol/L (98-107); GFR AFRICAN-AMERICAN > 60; GLUCOSE,RANDOM 117 mg/dL (70-110); SODIUM 141 mmol/L (132-148); TOTAL PROTEIN 6.1 g/dL (5.8-8.3)
[2017-09-18 06:43] LABS: LYME DISEASE SCREEN <0.90 index
--- NOTE | 2017-09-18 06:55 | CP.PCM.PN ---
Subjective - Date & Time of Evaluation Date of Evaluation: 09/18/17 Time of Evaluation: 06:52 - Subjective Subjective: Ms. Campos was seen and examined at the bedside. She is alert, oriented in all spheres. She denies any headache, slurred speech, dizziness, numbness, weakness , nausea, or vomiting. There was no untoward events overnight. Objective - Vital Signs/Intake and Output Vital Signs (last 24 hours): Temp Pulse Resp BP Pulse Ox 97.9 F 63 20 132/79 96 09/18/17 06:00 09/18/17 06:00 09/18/17 06:00 09/18/17 06:00 09/18/17 06:00 Intake and Output: 09/17/17 09/18/17 18:59 06:59 Intake Total 600 1745 Output Total 0 Balance 600 1745 - Medications Medications: Current Medications Aspirin (Ecotrin) 81 mg PO 0800 [facility] Last Admin: 09/17/17 09:54 Dose: 81 mg Atorvastatin Calcium (Lipitor) 40 mg PO DIN [facility] Last Admin: 09/17/17 17:58 Dose: 40 mg Enoxaparin Sodium (Lovenox) 40 mg SC DAILY [facility] PRN Reason: Protocol Last Admin: 09/17/17 09:52 Dose: 40 mg Ergocalciferol (Drisdol 50,000 Intl Units Cap) 1 cap PO Q7D [facility] Last Admin: 09/17/17 21:18 Dose: 1 cap Gabapentin (Neurontin) 100 mg PO BID [facility] PRN Reason: Protocol Last Admin: 09/17/17 17:58 Dose: 100 mg Sodium Chloride (Sodium Chloride 0.9%) 1,000 mls @ 125 mls/hr IV .Q8H [facility] Stop: 09/18/17 09:44 Last Admin: 09/18/17 00:11 Dose: 125 mls/hr Fluconazole (Diflucan Iv 200 Mg/100 Ml Ns) 100 mls @ 100 mls/hr IVPB DAILY [facility] PRN Reason: Protocol Last Admin: 09/17/17 10:00 Dose: 100 mls/hr Ctjwd-[id number] Ethyl Esters (Lovaza) 2 gm PO BID [facility] Last Admin: 09/17/17 17:58 Dose: 2 gm Pantoprazole Sodium (Protonix Ec Tab) 40 mg PO DAILY [facility] Sertraline HCl (Zoloft) 100 mg PO DAILY [facility] Sucralfate (Carafate Tab) 1 gm PO DAILY [facility] Last Admin: 09/17/17 09:53 Dose: 1 gm Trazodone HCl (Desyrel) 100 mg PO HS [facility] Last Admin: 09/17/17 21:18 Dose: 100 mg - Labs Labs: 09/18/17 05:15 09/18/17 05:15 PT 10.5 SECONDS (9.4-12.5) 09/17/17 06:45 INR 0.96 (0.93-1.08) 09/17/17 06:45 APTT 27.5 Seconds (25.1-36.5) 09/16/17 11:10 - Constitutional Appears: No Acute Distress - Head Exam Head Exam: ATRAUMATIC - Neurological Exam Neurological Exam: Alert, Awake, CN II-XII Intact, Oriented x3 Neuro motor strength exam: Left Upper Extremity: 5, Right Upper Extremity: 5, Left Lower Extremity: 5, Right Lower Extremity: 5 Additional comments: Neurological improved from previous examination. Assessment and Plan (1) TIA (transient ischemic attack) Assessment & Plan: Case discussed with Dr. Cheatham, continue all current medical, physical, and occupational therapies. She is clear for discharge from neurology and follow ep with Dr. Yan as an outpatient. Status: Acute
[2017-09-18] MEDS: Omega-3-Acid Ethyl Esters 1 GM Cap PO SCH (09:05)
[2017-09-18] MEDS: Enoxaparin 40 mg Syringe SC SCH (09:05)
[2017-09-18] MEDS: Fluconazole IV 200mg/100 ml NS 100 ML IVPB SCH (10:00)
[2017-09-18] MEDS ORDERED: Pantoprazole 40 mg EC Tab PO SCH (10:00)
--- NOTE | 2017-09-18 10:12 | CON ---
DATE: 09/18/2017 CARDIOLOGY CONSULTATION HISTORY: The patient is a 47-year-old woman who presents with slurred speech which was transient. This was diagnosis of TIA. PAST MEDICAL HISTORY: Includes hypertension, obesity, as well as an active smoker. She denies chest pain and shortness of breath. FAMILY HISTORY: Notable for multiple members having early myocardial infarctions and sudden . This is caused her marked anxiety. REVIEW OF SYSTEMS: 14-point review of systems was reviewed in detail. No cardiac symptomatology is noted. PHYSICAL EXAMINATION: VITAL SIGNS: Blood pressure is 132/79, heart rates is in the 60s. NECK: Negative JVD. LUNGS: Without rales. HEART: S1, S2. EXTREMITIES: Without edema. LABORATORY DATA: Troponins are negative x3. Echocardiogram reveals good LV function, glucose is 117. IMPRESSION: 1. Questionable transient ischemic attack. 2. Hypertension. 3. Hypercholesterolemia. 4. Obesity. 5. Strong family history for coronary artery disease. PLAN: Given these findings, I have discussed with the patient about the need to stop smoking. In addition, the patient should be on statin therapy given her cardiac risk. We will arrange for an outpatient stress test next week which the patient is agreeable. Jose Parson MD
[2017-09-18 11:50] VITALS: BP 142/91; PULSE 60; RESP 16; TEMP 98.6
--- NOTE | 2017-09-18 12:32 | CP.PCM.DIS ---
Provider - Provider Date of Admission: 09/16/17 14:27 Attending physician: Alex Zamudio MD Primary care physician: PMD: Dr Keyur [place] Psych: Dr. Chew Consults: - Neurology - Dr. Cheatham - Cardiology - Dr. Parson - Psych - Dr Green Time Spent in preparation of Discharge (in minutes): 45 Diagnosis - Discharge Diagnosis (1) Hypertension Status: Acute (2) TIA (transient ischemic attack) Status: Acute Hospital Course - Lab Results Lab Results: Most Recent Lab Values WBC 5.8 10^3/ul (4.5-11.0) 09/18/17 05:15 RBC 4.15 10^6/uL (3.5-6.1) 09/18/17 05:15 Hgb 12.5 g/dL (12.0-16.0) 09/18/17 05:15 Hct 38.3 % (36.0-48.0) 09/18/17 05:15 MCV 92.3 fl (80.0-105.0) 09/18/17 05:15 MCH 30.1 pg (25.0-35.0) 09/18/17 05:15 MCHC 32.6 g/dl (31.0-37.0) 09/18/17 05:15 RDW 13.4 % (11.5-14.5) 09/18/17 05:15 Plt Count 222 10^3/uL (120.0-450.0) 09/18/17 05:15 MPV 9.4 fl (7.0-11.0) 09/18/17 05:15 Gran % 54.7 % (50.0-68.0) 09/18/17 05:15 Lymph % (Auto) 35.2 % (22.0-35.0) H 09/18/17 05:15 [place] % (Auto) 6.0 % (1.0-6.0) 09/18/17 05:15 Eos % (Auto) 3.6 % (1.5-5.0) 09/18/17 05:15 Baso % (Auto) 0.5 % (0.0-3.0) 09/18/17 05:15 Gran # 3.18 (1.4-6.5) 09/18/17 05:15 Lymph # 2.1 (1.2-3.4) 09/18/17 05:15 [place] # 0.4 (0.1-0.6) 09/18/17 05:15 Eos # 0.2 (0.0-0.7) 09/18/17 05:15 Baso # 0.03 K/mm3 (0.0-2.0) 09/18/17 05:15 ESR 15 mm/hr (0.0-20.0) 09/17/17 06:45 PT 10.5 SECONDS (9.4-12.5) 09/17/17 06:45 INR 0.96 (0.93-1.08) 09/17/17 06:45 APTT 27.5 Seconds (25.1-36.5) 09/16/17 11:10 D-Dimer, Quantitative 271 ng/mL (0-243) H 09/16/17 11:10 Sodium 141 mmol/L (132-148) 09/18/17 05:15 Potassium 4.0 mmol/L (3.6-5.0) 09/18/17 05:15 Chloride 108 mmol/L (98-107) H 09/18/17 05:15 Carbon Dioxide 25 mmol/L (21-33) 09/18/17 05:15 Anion Gap 12 (10-20) 09/18/17 05:15 BUN 15 mg/dL (7-21) 09/18/17 05:15 Creatinine 0.9 mg/dl (0.7-1.2) 09/18/17 05:15 Est GFR ( Amer) > 60 09/18/17 05:15 Est GFR (Non-Af Amer) > 60 09/18/17 05:15 Random Glucose 117 mg/dL (70-110) H 09/18/17 05:15 Hemoglobin A1c 6.2 % (4.2-6.5) 09/17/17 06:45 Calcium 9.2 mg/dL (8.4-10.5) 09/18/17 05:15 Phosphorus 4.3 mg/dL (2.5-4.5) 09/16/17 11:10 Magnesium 2.0 mg/dL (1.7-2.2) 09/16/17 11:10 Total Bilirubin 0.4 mg/dL (0.2-1.3) 09/18/17 05:15 AST 37 U/L (14-36) H 09/18/17 05:15 ALT 48 U/L (7-56) 09/18/17 05:15 Alkaline Phosphatase 26 U/L (38-126) L 09/18/17 05:15 Troponin I < 0.01 ng/mL 09/17/17 00:30 C-React Prot High Sens 2.39 mg/L (1.00-3.00) 09/17/17 06:45 Total Protein 6.1 g/dL (5.8-8.3) 09/18/17 05:15 Albumin 3.2 g/dL (3.0-4.8) 09/18/17 05:15 Globulin 2.9 gm/dL 09/18/17 05:15 Albumin/Globulin Ratio 1.1 (1.1-1.8) 09/18/17 05:15 Triglycerides 247 mg/dL (35-160) H 09/17/17 06:45 Cholesterol 238 mg/dL (130-200) H 09/17/17 06:45 LDL Cholesterol Direct 177 mg/dL (0-129) H 09/17/17 06:45 HDL Cholesterol 37 mg/dL (29-60) 09/17/17 06:45 Vitamin B12 444 pg/mL (239-931) 09/17/17 06:45 25-OH Vitamin D Total < 12.8 NG/ML (30.0-100.0) L 09/17/17 06:45 Folate 8.5 ng/mL 09/17/17 06:45 Free T4 0.90 ng/dL (0.78-2.19) 09/16/17 11:10 Total T3 1.54 ng/mL (0.97-1.69) 09/16/17 11:10 TSH 3rd Generation 1.36 mIU/mL (0.46-4.68) 09/16/17 11:10 Beta HCG, Quant < 2.39 mIU/mL (0-6.15) 09/16/17 15:00 Urine Color Yellow (YELLOW) 09/16/17 11:50 Urine Appearance Clear (CLEAR) 09/16/17 11:50 Urine pH 6.0 (4.7-8.0) 09/16/17 11:50 Ur Specific [place] >= 1.030 (1.005-1.035) 09/16/17 11:50 Urine Protein Negative mg/dL (<30 mg/dL) 09/16/17 11:50 Urine Glucose (UA) Negative mg/dL (NEGATIVE) 09/16/17 11:50 Urine Ketones Negative mg/dL (NEGATIVE) 09/16/17 11:50 Urine Blood Trace-intact (NEGATIVE) H 09/16/17 11:50 Urine Nitrate Negative (NEGATIVE) 09/16/17 11:50 Urine Bilirubin Negative (NEGATIVE) 09/16/17 11:50 Urine Urobilinogen 0.2 E.U./dL (<1 E.U./dL) 09/16/17 11:50 Ur Leukocyte Esterase Negative Ivana/uL (NEGATIVE) 09/16/17 11:50 Urine RBC 2 - 5 /hpf (0-2) 09/16/17 11:50 Urine WBC 0 - 2 /hpf (0-6) 09/16/17 11:50 Ur Epithelial Cells 6 - 8 /hpf (0-5) 09/16/17 11:50 Amorphous Sediment Few 09/16/17 11:50 Urine Bacteria Mod (NEG) 09/16/17 11:50 Urine Other Uyeast 09/16/17 11:50 Urine HCG, Qual Negative (NEGATIVE) 09/16/17 11:50 Urine Opiates Screen Negative (NEGATIVE) 09/16/17 11:50 Urine Methadone Screen Negative (NEGATIVE) 09/16/17 11:50 Ur Barbiturates Screen Negative (NEGATIVE) 09/16/17 11:50 Ur Phencyclidine Scrn Negative (NEGATIVE) 09/16/17 11:50 Ur Amphetamines Screen Negative (NEGATIVE) 09/16/17 11:50 U Benzodiazepines Scrn Negative (NEGATIVE) 09/16/17 11:50 U Oth Cocaine Metabols Negative (NEGATIVE) 09/16/17 11:50 U Cannabinoids Screen Negative (NEGATIVE) 09/16/17 11:50 Alcohol, Quantitative < 10 mg/dL (0-10) 09/16/17 15:00 RPR Nonreactive (NONREACTIVE) 09/17/17 06:45 Lyme Disease Screen <0.90 index 09/17/17 06:45 - Hospital Course Hospital Course: A 47 year old female, whose PMHx includes substance abuse (marijuana), PTSD on Sertraline, Hx Bojorquez's palsy, HTN, Family Hx of premature cardiac . c/o slurring of speech x 2days. Slowing and slurring of speech started with loss of R facial expression 2 days ago and became noticible by yesterday. It was associated with numbness and pressure sensation of R face, face drooping, loss of balance, and gait disturbance. CT head, CTA of head, MRI brain, MRA of head was negative. Telemetry showed sinus bradycardia as low as 45 at night without any symptoms. carotid u/s 0-19% ICC stenosed. No sig change in EKGs, and echocardiogram was normal. She was found to have TIA. PT/OT/ST initiated. Pt is not a candidate for skilled PT and OT services. She is to follow up with primary care doctor outpatient for speech/swallow therapy if needed. She was started on ASA 81 and lipitor. Psychiatry reviewed her psych history and psych meds and recommended her to f/u with her outpatient. She is to follow up with cardiology outpatient for stress test. She is to follow up with Dr. Yan, neurologist, Dr. Parson, alarm investigator, and PCP within 1 week after discharge. Discharge Exam - Head Exam Head Exam: ATRAUMATIC - Eye Exam Eye Exam: EOMI, Normal appearance, PERRL. absent: Scleral icterus Pupil Exam: NORMAL ACCOMODATION - ENT Exam ENT Exam: Mucous Membranes Moist - Neck Exam Additional comments: supple - Respiratory Exam Respiratory Exam: Clear to PA & Lateral, UNREMARKABLE - Cardiovascular Exam Cardiovascular Exam: REGULAR RHYTHM, +S1, +S2 - GI/Abdominal Exam GI & Abdominal Exam: Normal Bowel Sounds, Soft. absent: Distended, Guarding, Rigid, Tenderness - Extremities Exam Extremities exam: normal capillary refill, pedal pulses present Additional comments: no calf tenderness - Back Exam Back exam: absent: CVA tenderness (L) - Neurological Exam Neurological exam: Alert, CN II-XII Intact, Normal Gait, Oriented x3 - Psychiatric Exam Psychiatric exam: Normal Affect, Normal Mood - Skin Skin Exam: Dry, Warm Discharge Plan - Discharge Medications Prescriptions: Aspirin [Ecotrin] 81 mg PO 0800 #30 tabec Atorvastatin [Lipitor] 40 mg PO DIN #30 tab Ergocalciferol [Drisdol 50,000 Intl Units Cap] 1 cap PO Q7D #7 cap [id number] Ethyl Esters 1 GM [Lovaza] 2 gm PO BID #120 sgl Pantoprazole [Protonix Inj] 40 mg PO DAILY #30 tab Sertraline [Zoloft] 100 mg PO DAILY #14 tab - Follow Up Plan Condition: FAIR Disposition: HOME/ ROUTINE Instructions: Chest Pain (DC), Chest Pain (GEN), Hypertension (DC), Hypertension (GEN) Additional Instructions: DISCHARGE HOME AFTER CLEARED BY CARDIOLOGY NEUROLOGY PSYCHIATRY IF CTA CHEST NEGATIVE FOLLOW UP WITHIN 1 WEEK Follow up with neurologist, Dr Yan, within 1 week Follow up with Dr Chew, within 1 week Follow uo with Dr. Parson or your own alarm investigator within 1 week for outpatient stress test. DISCHARGE MEDS PER AMBULATORY ORDERS PLUS NEW SCRIPTS STOP SMOKING STOP ALCOHOL STOP RECREATIONAL DRUG USE. WEIGHT LOSS Referrals: Alex Zamudio MD [Staff Provider] - 1 Week (DISCHARGE HOME AFTER CLEARED BY CARDIOLOGY NEUROLOGY PSYCHIATRY AND IF CTA CHEST NEGATIVE FOLLOW UP WITHIN 1 WEEK DISCHARGE MEDS PER AMBULATORY ORDERS PLUS NEW SCRIPTS STOP SMOKING STOP ALCOHOL STOP RECREATIONAL DRUG USE. WEIGHT LOSS) Tevin Chew MD [Non-Staff] - Ponce Yan MD [Staff Provider] -
[2017-09-19 09:28] LABS: CARDIO CRP(R) 2.7 mg/L
--- NOTE | 2017-09-19 09:50 | DS ---
LOCATION: The patient is seen in room 275, bed 2. HISTORY OF PRESENT ILLNESS: The patient was seen by the medical secretary and the patient's nurse. The patient's vital signs and diagnostic data reviewed. Please refer to the discharge summary dictated by and completed by the medical secretary. FINAL IMPRESSION, PLAN AND DISCHARGE DIAGNOSES: 1. Transient ischemic attack. 2. Hypertension. 3. Dyslipidemia. 4. Morbid obesity with elevated body mass index. 5. Elevated D-dimer, etiology undetermined. 6. Hypertriglyceridemia. 7. Hypercholesterolemia with elevated LDL of 177. 8. Hypovitaminosis D. 9. Prediabetes with hemoglobin A1c of 6.2. 10. Microscopic hematuria, pyuria, bacteriuria, and funguria. 11. History of posttraumatic stress disorder, anxiety and depression. 12. Marijuana use disorder. 13. History of hypertension and dyslipidemia. 14. History of insomnia. 15. Nicotine dependence. 16. Asymptomatic sinus bradycardia. 17. Left ventricular ejection fraction of 67%. 18. History of alcoholism. 19. Possible adjustment disorder. PLAN: Plan at this time, the patient was cleared by Neurology, Cardiology, and Psychiatry for discharge. The patient is to be discharged home. DISCHARGE FOLLOWUP: Discharge follow up with Psychiatry. Next discharge follow up with Dr. Parson for outpatient stress test. Discharge follow up with Dr. Zamudio if the patient desires to. DISCHARGE MEDICATIONS: The patient is to resume her Carafate 1 g p.o. daily and Desyrel 25 mg daily. The patient is started on Drisdol 50,000 weekly, and Ecotrin 81 mg daily. The patient is on estradiol 0.5 mg daily. The patient is started on Lipitor 40 mg daily and Lovaza 2 g twice a day. The patient is to resume on hydrochlorothiazide 12.5 mg daily, Neurontin 100 mg twice a day, and Protonix 40 mg daily. The patient is to resume on her Zoloft 100 mg daily. During this hospitalization, the patient was extensively explained about her diagnoses, test results, and recommendation by all the physician involved in the care of the patient. The patient was counseled about cessation of smoking, alcohol and marijuana use. The patient was advised weight loss. The patient was advised outpatient cardiology followup for a stress test. The patient was advised outpatient followup with Neurology. DISCHARGE CONDITION: Stable. Alex MD Lizz
[2017-09-19 19:57] LABS: SPECIMEN SOURCE Serum
== END 2017-09-18 12:38 | disposition home or self-care (01) ==
LOC: ED 10:14 → ERH 14:27 → INTOOBSV 14:27 → 2RSO 16:37
PROVIDERS: ADMIT Internal Medicine; ATTEND Internal Medicine
DX: G45.9 Transient cerebral ischemic attack, unspecified (principal); I10 Essential (primary) hypertension; R47.81 Slurred speech; F12.10 Cannabis abuse, uncomplicated; F43.10 Post-traumatic stress disorder, unspecified; G51.0 Bell's palsy; J45.909 Unspecified asthma, uncomplicated; M51.9 Unspecified thoracic, thoracolumbar and lumbosacral intervertebral disc disorder; F17.210 Nicotine dependence, cigarettes, uncomplicated; Z79.82 Long term (current) use of aspirin; E66.01 Morbid (severe) obesity due to excess calories; Z68.41 Body mass index [BMI] 40.0-44.9, adult; E78.5 Hyperlipidemia, unspecified; E78.1 Pure hyperglyceridemia; R73.03 Prediabetes; E55.9 Vitamin D deficiency, unspecified; F10.21 Alcohol dependence, in remission; G47.00 Insomnia, unspecified; R31.29 Other microscopic hematuria; R00.1 Bradycardia, unspecified; R29.704 NIHSS score 4; Z82.49 Family history of ischemic heart disease and other diseases of the circulatory system
CPT/HCPCS: 36415; 70450; 70496; 70498; 70544; 70551; 71275; 80053; 80061; 81001; 81240; 82306; 82607; 82746; 83036; 83735; 84100; 84439; 84443; 84480; 84484; 84702; 84703; 85025; 85027; 85378; 85610; 85651; 85730; 86141; 86592; 86618; 86695; 86696; 87086; 87529; 92507; 92523; 92610; 93005; 93306; 93880; 93970; 96365; 96366; 96372; 96375; 97112; 97116; 97161; 97165; 99285; C9113; G0378; G0480; G8978; G8979; G8980; G8987; G8988; G8989; G8999; G9186; J1450; J1650; J7040; J7042; Q9967

== ENCOUNTER 2017-10-02 06:34 | Day surgery (SDC) | payer BC ==
[2017-09-28 11:23] VITALS: BMI 40.3
[2017-10-02 07:29] VITALS: RESP 18
[2017-10-02 07:37] LABS: BASO # 0.03 K/mm3 (0.0-2.0); BASO % 0.4 % (0.0-3.0); EOS # 0.3 (0.0-0.7); EOS % 3.7 % (1.5-5.0); GRAN # 4.07 (1.4-6.5); GRAN % 61.1 % (50.0-68.0); HEMATOCRIT 40.7 % (36.0-48.0); LYMPH # 1.9 (1.2-3.4); LYMPH % 28.5 % (22.0-35.0); MEAN CELL VOLUME 91.3 fl (80.0-105.0); MEAN CORPUSCULAR HEMOGLOBIN 30.7 pg (25.0-35.0); MEAN CORPUSCULAR HGB CONC 33.7 g/dl (31.0-37.0); MEAN PLATELET VOLUME 9.4 fl (7.0-11.0); MONO # 0.4 (0.1-0.6); MONO % 6.3 % (1.0-6.0); RED CELL DISTRIBUTION WIDTH 13.4 % (11.5-14.5); WHITE BLOOD COUNT 6.7 10^3/ul (4.5-11.0)
[2017-10-02 07:50] LABS: INR 0.92 (0.93-1.08); PARTIAL THROMBOPLASTIN TIME 27.4 Seconds (25.1-36.5)
[2017-10-02 08:00] LABS: BLOOD UREA NITROGEN 23 mg/dL (7-21); CALCIUM 9.9 mg/dL (8.4-10.5); CARBON DIOXIDE 24 mmol/L (21-33); CHLORIDE 106 mmol/L (98-107); GFR AFRICAN-AMERICAN > 60; GLUCOSE,RANDOM 130 mg/dL (70-110); SODIUM 140 mmol/L (132-148)
[2017-10-02] MEDS ORDERED: Lidocaine 2% Inj (20ml) ONE (08:41)
[2017-10-02] MEDS ORDERED: HEPARIN SODIUM/NS 1,000 ML IV ONE (08:41)
[2017-10-02] MEDS ORDERED: Iohexol 350mgl/ml 50 ML ONE (08:43)
[2017-10-02] MEDS ORDERED: Iohexol 350 MG/100 ML VIAL ONE (08:43)
[2017-10-02] MEDS ORDERED: Phenylephrine 10 mg/ml Inj ONE (08:45)
[2017-10-02] MEDS ORDERED: Midazolam 2 MG/2 ML VIAL ONE ×2 (08:58→09:21)
[2017-10-02] MEDS ORDERED: Sodium Chloride 0.9% 1,000 ML IV SCH (10:00)
[2017-10-02 10:37] VITALS: O2SAT 98
[2017-10-02 14:39] VITALS: BP 143/90; PULSE 68; TEMP 98
--- NOTE | 2017-10-02 20:09 | CARDCATH ---
PROCEDURE DATE: 10/02/2017 HISTORY: The patient is a 47-year-old woman, who presents with recurrent admissions for chest pain including symptoms at rest. The patient underwent a stress test that showed anterior wall ischemia. Because of this, cardiac catheterization was recommended. The patient suffers from hypertension, hypercholesterolemia and obesity. PROCEDURE: Left heart catheterization with coronary arteriography and left ventriculogram. The right femoral artery was cannulated with 6-[place] sheath. There were no complications. I performed moderate sedation which included the presence of an independent trained observer that assisted in monitoring the patient's level of consciousness and physiologic status. After administration of Versed and fentanyl, my intra service time was 15 minutes. The findings on catheterization revealed a right dominant circulation. The RCA revealed intimal irregularities without significant stenoses. The left main artery was unremarkable. The LAD and its midportion revealed an eccentric 40-50% stenoses. In the ROMANO projection, the LAD revealed 40-50% stenosis in the MACEDONIAN projection, no stenosis was noted. The circumflex artery and obtuse marginal branch revealed intimal irregularities without significant stenoses. The Mynx system was used to close the femoral artery site. The patient tolerated the procedure well. In summary, the procedure revealed normal LV function with an EF of 60%. There was an eccentric 40-50% stenosis in the mid LAD. Given these findings, the patient's treatment should be medical. She needs to been on a baby aspirin daily and undergo a strict cardiac risk reduction program, which needs to include cholesterol control, weight loss as well as enrollment in our cardiac rehab program which she can undergo a exercise program. Jose Parson MD
== END 2017-10-02 15:00 | disposition home or self-care (01) ==
LOC: CATH 06:34
PROVIDERS: ATTEND Internal Medicine Cardiovascular Disease
DX: I25.10 Atherosclerotic heart disease of native coronary artery without angina pectoris (principal); E66.9 Obesity, unspecified; E78.00 Pure hypercholesterolemia, unspecified; I10 Essential (primary) hypertension
CPT/HCPCS: 36415; 80048; 85025; 85610; 85730; 86850; 86900; 93458; 99152; C1760; C1769; C2629; J1644 ×2; J2250; J3010; J7040 ×2; Q9967

== ENCOUNTER 2017-10-08 13:33 | Emergency (ER) | payer BC ==
[2017-10-08 13:34] VITALS: BMI 40.3
--- NOTE | 2017-10-08 14:07 | ED PDOC ---
Arrival/HPI - General Chief Complaint: Chest Pain Time Seen by Provider: 10/08/17 13:57 Historian: Patient - History of Present Illness Narrative History of Present Illness (Text): 10/08/17 13:40 Ella Campos is a 47 year old female, whose past medical history includes a hysterectomy, hypertension, high cholesterol, PTSD, anxiety, former smoker, and TIA, who presents to the emergency department complaining of intermittent atypical chest pain and dyspnea on exertion with associated lower back pain for a few days. Patient notes that she recently had a cardiac catheterization on and also had a TIA about a week prior to the procedure. Patient also notes that a MynxGrip Vascular Closure device was placed post-catheterization. Since the procedure, patient has been experiencing symptoms, as well as difficulty walking due to lower back pain. Patient states that she took Tylenol once to no relief. Patient denies any fever, chills, nausea, vomiting, diarrhea, urinary symptoms, neck pain, headache, dizziness, or any other complaints. Patient has a family history of CAD. Gas Usage Meter Clerk: Dr. Parson Time/Duration: < week Symptom Onset: Gradual Symptom Course: Unchanged, Intermittent Activities at Onset: Light Context: Home Past Medical History - Provider Review Nursing Documentation Reviewed: Yes - Infectious Disease Hx of Infectious Diseases: None - Cardiac Hx Hypertension: Yes - Pulmonary Hx Asthma: Yes - Neurological Hx Paralysis: No - HEENT Hx HEENT Disorder: No - Renal Hx Renal Disorder: No - Endocrine/Metabolic Hx Endocrine Disorders: No - Hematological/Oncological Hx Blood Transfusions: No - Integumentary Hx Dermatological Disorder: No - Musculoskeletal/Rheumatological Hx Musculoskeletal Disorders: Yes - Gastrointestinal Hx Gastrointestinal Disorders: No - Genitourinary/Gynecological Hx Genitourinary Disorders: No - Psychiatric Hx Depression: Yes Hx Substance Use: No Other/Comment: PTSD - Surgical History Hx Cardiac Catheterization: Yes Hx Hysterectomy: Yes - Anesthesia Hx Anesthesia Reactions: No Hx Malignant Hyperthermia: No - Suicidal Assessment Feels Threatened In Home Enviroment: No Family/Social History - Physician Review Nursing Documentation Reviewed: Yes Family/Social History: No Known Family HX Smoking Status: Heavy Smoker > 10 Cigarettes Daily Hx Alcohol Use: Yes (PAST) Hx Substance Use: No Allergies/Home Meds Allergies/Adverse Reactions: Allergies No Known Allergies Allergy (Verified 10/08/17 13:54) Home Medications: Home Meds Medication Instructions Recorded Confirmed Estradiol 2 mg PO DAILY 04/25/17 12/21/17 Gabapentin [Neurontin] 300 mg PO BID 02/10/17 10/08/17 Sucralfate [Carafate Tab] 1 gm PO QID 02/10/17 10/08/17 Acetaminophen [Tylenol 325mg tab] 650 mg PO Q4H PRN 10/01/17 10/08/17 Bupropion HCl [Bupropion Xl] 150 mg PO DAILY 10/01/17 10/08/17 Hydrochlorothiazide [Microzide] 25 mg PO DAILY 10/01/17 10/08/17 Temazepam [Restoril] 30 mg PO HS 10/01/17 10/08/17 traZODone [Desyrel] 200 mg PO QPM 10/01/17 10/08/17 Review of Systems - Physician Review All systems were reviewed & negative as marked: Yes - Review of Systems Constitutional: absent: Fevers, Night Sweats Eyes: absent: Vision Changes ENT: absent: Hearing Changes Respiratory: absent: SOB Cardiovascular: Chest Pain, YI Gastrointestinal: absent: Abdominal Pain Genitourinary Female: absent: Dysuria, Frequency Musculoskeletal: Back Pain (lower). absent: Arthralgias Skin: absent: Rash, Pruritis Neurological: absent: Headache, Dizziness Endocrine: absent: Diaphoresis, Polyuria Hemo/Lymphatic: absent: Adenopathy Physical Exam Vital Signs Reviewed: Yes Vital Signs Temp Pulse Resp BP Pulse Ox 10/08/17 18:37 79 17 120/69 99 10/08/17 15:48 98.3 F 81 20 133/102 H 97 Temperature: Afebrile Blood Pressure: Hypertensive (mild) Pulse: Regular Respiratory Rate: Normal Appearance: Positive for: Well-Appearing, Non-Toxic, Comfortable Pain Distress: None Mental Status: Positive for: Alert and Oriented X 3 - Systems Exam Head: Present: Atraumatic, Normocephalic Pupils: Present: PERRL Extroacular Muscles: Present: EOMI Conjunctiva: Present: Normal Mouth: Present: Moist Mucous Membranes Neck: Present: Normal Range of Motion Respiratory/Chest: Present: Clear to Auscultation, Good Air Exchange. No: Respiratory Distress, Accessory Muscle Use Cardiovascular: Present: Regular Rate and Rhythm, Normal S1, S2. No: Murmurs Abdomen: Present: Other (Right-sided inguinal area tender to palpation) Back: Present: Normal Inspection Upper Extremity: Present: Normal Inspection. No: Cyanosis, Edema Lower Extremity: Present: Normal Inspection. No: Edema Neurological: Present: GCS=15, CN II-XII Intact, Speech Normal Skin: Present: Warm, Dry, Normal Color. No: Rashes Psychiatric: Present: Alert, Oriented x 3, Normal Insight, Normal Concentration Medical Decision Making ED Course and Treatment: 10/08/17 14:09 Impression: 47 year old female complaining of intermittent atypical chest pain and dyspnea on exertion with associated lower back pain for a few days. Differential Diagnosis included but are not limited to: Plan: -- EKG -- Chest X-ray -- Urinalysis -- Labs -- Reassess and disposition Prior Visits: Notes and results from previous visits were reviewed. Patient was last seen in the emergency department on 09/16/17 for slight slurring of speech. Patient was admitted to hospitalist care for further evaluation. Progress Notes: 10/08/17 14:10 Reviewed cardiac catheterization report on 10/02, procedure revealed normal LV function with an EF of 60% 10/08/17 14:[address] Parson, who spoke of results of catheterization plan for evaluation of patient chest pain. He agrees with plan of serial enzymes and discharge if negative. - Lab Interpretations Lab Results: 10/08/17 14:10 10/08/17 14:10 Lab Results 10/08/17 17:40: Troponin I < 0.01 10/08/17 15:00: Urine Color Yellow, Urine Appearance Clear, Urine pH 7.0, Ur Specific [place] 1.015, Urine Protein Negative, Urine Glucose (UA) Negative, Urine Ketones Negative, Urine Blood Negative, Urine Nitrate Negative, Urine Bilirubin Negative, Urine Urobilinogen 0.2, Ur Leukocyte Esterase Negative 10/08/17 14:10: Sodium 137, Potassium 3.2 L, Chloride 98, Carbon Dioxide 28, Anion Gap 15, BUN 14, Creatinine 0.8, Est GFR ( Amer) > 60, Est GFR (Non- Af Amer) > 60, Random Glucose 120 H, Calcium 9.6, Magnesium 2.0, Total Bilirubin 0.3, AST 31, ALT 61 H, Alkaline Phosphatase 31 L, Lactate Dehydrogenase 406, Total Creatine Kinase 70, Troponin I < 0.01, NT-Pro-B Natriuret Pep 41.4, Total Protein 7.2, Albumin 3.8, Globulin 3.3, Albumin/ Globulin Ratio 1.1 10/08/17 14:10: D-Dimer, Quantitative 380 H 10/08/17 14:10: WBC 7.9, RBC 4.14, Hgb 12.6, Hct 37.4, MCV 90.3, MCH 30.4, MCHC 33.7, RDW 13.0, Plt Count 282, MPV 9.0, Gran % 67.5, Lymph % (Auto) 23.6, [place] % (Auto) 6.2 H, Eos % (Auto) 2.4, Baso % (Auto) 0.3, Gran # 5.35, Lymph # 1.9, [place] # 0.5, Eos # 0.2, Baso # 0.02 I have reviewed the lab results: Yes - RAD Interpretation Radiology Orders: 10/08/17 13:59 CHEST PORTABLE [RAD] Stat 10/08/17 14:59 ANGIO CHEST PE PROTOCOL [CT] Stat - EKG Interpretation EKG Interpretation (Text): 10/08/17 15:02 nsr at 83 BPM,NSSTTW changes,otherwise neg - Medication Orders Current Medication Orders: Discontinued Medications Ketorolac Tromethamine (Toradol) 30 mg IVP STAT STA Stop: 10/08/17 15:29 Last Admin: 10/08/17 15:55 Dose: 30 mg MAR Pain Assessment Document 10/08/17 15:55 RD (Rec: 10/08/17 15:55 RD [id number]) Pain Reassessment Is this a pain reassessment? No Sleep Is patient sleeping during reassessment? No Presence of Pain Presence of Pain Yes IVP Administration Document 10/08/17 15:55 RD (Rec: 10/08/17 15:55 RD [id number]) Charges for Administration # of IVP Administrations 1 - Scribe Statement The provider has reviewed the documentation as recorded by the Miguel Nixon Provider Scribe Attestation: All medical record entries made by the Scribe were at my direction and personally dictated by me. I have reviewed the chart and agree that the record accurately reflects my personal performance of the history, physical exam, medical decision making, and the department course for this patient. I have also personally directed, reviewed, and agree with the discharge instructions and disposition. Disposition/Present on Arrival - Present on Arrival Any Indicators Present on Arrival: No History of DVT/PE: No History of Uncontrolled Diabetes: No Urinary Catheter: No History of Decub. Ulcer: No History Surgical Site Infection Following: None - Disposition Have Diagnosis and Disposition been Completed?: Yes Diagnosis: Chest pain Disposition: HOME/ ROUTINE Disposition Time: 18:37 Patient Plan: Discharge Condition: GOOD Discharge Instructions (ExitCare): Chest Pain (ED) Prescriptions: Cyclobenzaprine [Cyclobenzaprine HCl] 10 mg PO TID PRN #21 tab PRN Reason: Pain, Mild (1-3) Naproxen [Naprosyn] 500 mg PO BID #20 tablet Forms: [employer] (N[place]ian)
[2017-10-08 14:28] LABS: BASO # 0.02 K/mm3 (0.0-2.0); BASO % 0.3 % (0.0-3.0); EOS # 0.2 (0.0-0.7); EOS % 2.4 % (1.5-5.0); GRAN # 5.35 (1.4-6.5); GRAN % 67.5 % (50.0-68.0); HEMATOCRIT 37.4 % (36.0-48.0); LYMPH # 1.9 (1.2-3.4); LYMPH % 23.6 % (22.0-35.0); MEAN CELL VOLUME 90.3 fl (80.0-105.0); MEAN CORPUSCULAR HEMOGLOBIN 30.4 pg (25.0-35.0); MEAN CORPUSCULAR HGB CONC 33.7 g/dl (31.0-37.0); MONO # 0.5 (0.1-0.6); MONO % 6.2 % (1.0-6.0); WHITE BLOOD COUNT 7.9 10^3/ul (4.5-11.0)
[2017-10-08 14:48] LABS: TROPONIN I < 0.01 ng/mL
[2017-10-08 14:52] LABS: ALB/GLOB RATIO 1.1 (1.1-1.8); ALKALINE PHOSPHATASE 31 U/L (38-126); ALT/SGPT 61 U/L (7-56); AST/SGOT 31 U/L (14-36); BILIRUBIN,TOTAL 0.3 mg/dL (0.2-1.3); BLOOD UREA NITROGEN 14 mg/dL (7-21); CALCIUM 9.6 mg/dL (8.4-10.5); CARBON DIOXIDE 28 mmol/L (21-33); CHLORIDE 98 mmol/L (98-107); GFR AFRICAN-AMERICAN > 60; GLUCOSE,RANDOM 120 mg/dL (70-110); POTASSIUM 3.2 mmol/L (3.6-5.0); SODIUM 137 mmol/L (132-148); TOTAL PROTEIN 7.2 g/dL (5.8-8.3)
[2017-10-08 15:09] LABS: URINE APPEARANCE CLEAR (CLEAR); URINE BILIRUBIN NEGATIVE (NEGATIVE); URINE BLOOD NEGATIVE (NEGATIVE); URINE COLOR YELLOW (YELLOW); URINE GLUCOSE (UA) NEGATIVE (NEGATIVE); URINE KETONE NEGATIVE (NEGATIVE); URINE LEUKOCYTE ESTERASE NEGATIVE Leu/uL (NEGATIVE); URINE PROTEIN NEGATIVE mg/dL (<30 mg/dL); URINE UROBILINOGEN 0.2 E.U./dL (<1 E.U./dL)
--- NOTE | 2017-10-08 15:20 | RAD ---
HISTORY: chest pain COMPARISON: 02/10/2017 FINDINGS: LUNGS: No active pulmonary disease. PLEURA: No significant pleural effusion identified, no pneumothorax apparent. CARDIOVASCULAR: Normal. OSSEOUS STRUCTURES: No significant abnormalities. VISUALIZED UPPER ABDOMEN: Normal. OTHER FINDINGS: None. IMPRESSION: No active disease.
[2017-10-08 15:49] VITALS: TEMP 98.3
[2017-10-08] MEDS ORDERED: Iodixanol 320 MG/ML 100 ML BOTTLE IV ONE (16:20)
--- NOTE | 2017-10-08 17:33 | CT ---
PROCEDURE: CT Chest with contrast (Pulmonary Angiogram) HISTORY: Chest pain COMPARISON: 09/17/2017 CT pulmonary angiogram TECHNIQUE: Axial computed tomography images were obtained of the chest in the pulmonary arterial phase of enhancement. Coronal and sagittal reformatted images were created and reviewed. Maximum intensity projection (MIP) reconstructed images in the following planes: Coronal and sagittal. Intravenous contrast dose: 100 cc Visipaque 320. Mean Hounsfield unit values in the main pulmonary artery: 223.13 Radiation dose: Total exam DLP = 506.46 mGy-cm. This CT exam was performed using one or more of the following dose reduction techniques: Automated exposure control, adjustment of the mA and/or kV according to patient size, and/or use of iterative reconstruction technique. FINDINGS: PULMONARY ARTERIES: Unremarkable. No pulmonary embolism. Limitations of the current examination: Based on Hounsfield unit values and qualitative assessment pulmonary emboli beyond the segmental level are difficult to assess. AORTA: No acute findings. No thoracic aortic aneurysm. LUNGS: Lingular atelectasis, subsegmental. Similar changes in the right middle lobe. Parabronchial thickening and ground-glass appearance to both lungs. This may represent mild pulmonary edema with interstitial and alveolar components. PLEURAL SPACES: Unremarkable. No effusion or pneuomothorax. HEART: Unremarkable. No cardiomegaly. No significant pericardial effusion. LYMPH NODES: No lymphadenopathy. BONES, CHEST WALL: Unremarkable. No fracture or destructive lesion OTHER FINDINGS: Unremarkable. IMPRESSION: Unremarkable CT pulmonary angiogram. No pulmonary embolus. Peripheral subsegmental pulmonary emboli cannot be excluded based on the degree of opacification of peripheral pulmonary arteries. There are no main, lobar, segmental pulmonary emboli. Areas of atelectasis in perhaps mild interstitial edema findings not seen previously.
[2017-10-08 18:38] VITALS: BP 120/69; PULSE 79; RESP 17; O2SAT 99
--- NOTE | 2017-10-09 09:45 | CARD ---
APPROVED REPORT EKG Measurement Heart [id number] <Conclusion> Normal sinus rhythm Nonspecific T wave abnormality and Prolonged QT are new
== END 2017-10-08 18:38 | disposition home or self-care (01) ==
LOC: ED 13:33
DX: R07.9 Chest pain, unspecified (principal); E78.00 Pure hypercholesterolemia, unspecified; I10 Essential (primary) hypertension; F17.210 Nicotine dependence, cigarettes, uncomplicated
CPT/HCPCS: 71010; 71275; 80053; 81003; 82550; 83615; 83735; 83880; 84484; 85025; 85378; 93005; 96374; 99284; J1885; Q9967